=== PATIENT | female | born 1955 | race Caucasian/White ===

== ENCOUNTER 2024-01-31 13:38 | Outpatient (AMB) | payer MEDICARE, OTHER, SELFPAY ==
--- NOTE | 2024-01-31 13:40 | MHC.PC.OV ---
Vital Signs 01/31/24 13:42 Height 5 ft 2 in Weight 134 lb 4 oz BMI 24.6 BP 116/74 Blood Pressure Location Lt brachial Position Sitting Pulse 94 Pulse Source Pulse Oximeter Pulse Oximetry (%) 98 Oxygen Delivery Method Room Air Intake Visit Reasons: New Patient Allergies Sulfa (Sulfonamide Antibiotics) Allergy (Intermediate, Verified 01/31/24 13:44) Vomiting Medication List - Last Reconciled 01/31/24 by Xenia Hogan MD chlorpheniramine maleate 4 mg PO .QHS levothyroxine 112 mcg PO DAILY magnesium oxide 500 mg PO DAILY mecobalamin (vitamin B12) mcg PO [Thyroid Support PO .QD] [vertigo SUpport PO .QD] [vertisis cocculus indicus] Tobacco use date assessed: 01/31/24 Fall risk assessment: No Falls in past year Last assessed Fall Risk: 01/31/24 Dental Screening Dental Screen Date: 01/31/24 Did you have a dental visit in the last 12 months?: Yes Did you have a dental problem in the last 6 months where you did not have access to dental care?: No Was dental information given to patient?: Patient has dentist HPI New Patient HPI Details 68-year-old female with hypothyroidism being seen for the 1st time. 2 months noted forgetting things, daughter recent suicide PFSH Medical History (Updated 01/31/24 @ 14:29 by Xenia Hogan MD) Wrist fracture, left Surgical History (Updated 01/31/24 @ 14:20 by Xenia Hogan MD) History of Amplatzer atrial septal defect closure Hx of cholecystectomy H/O section Family History (Updated 01/31/24 @ 13:51 by Мария Duncan CMA) Mother Alzheimer disease Father Alzheimer disease Social History (Updated 01/31/24 @ 14:08 by Xenia Hogan MD) Household Members: Children Housing: House Alcohol intake: never Patient Tobacco Use Status: Former Tobacco user Tobacco use type: Cigarette Years Smoked: quit 2003 smoked 1 years 2 cigars a day e-Cigarette/Vaping Use: Never Used service: No Current occupational status: retired Cognitive needs: No Hearing needs: No Vision needs: Yes Questionnaire PHQ-9 Over the last 2 weeks, how often have you been bothered by any of the following problems? 1. Little interest or pleasure in doing things: not at all 2. Feeling down, depressed, or hopeless: not at all 3. Trouble falling or staying asleep, or sleeping too much: not at all 4. Feeling tired or having little energy: not at all 5. Poor appetite or overeating: not at all 6. Feeling bad about yourself - or that you are a failure or have let yourself or your family down: not at all 7. Trouble concentrating on things, such as reading the newspaper or watching television: not at all 8. Moving or speaking so slowly that other people could have noticed. Or the opposite - being so fidgety or restless that you have been moving around a lot more than usual: not at all 9. Thoughts that you would be better off or of hurting yourself in some way: not at all Total score: 0 Depression Screening Interpretation: Negative Depression Screening Done: Yes 75089 - PHQ-9 Billing: Yes Source: Developed by Drs. Jesse Portillo, Lisa Chavez, Steven Gregg and colleagues, with an educational janice from [employer]. Thrive Questionnaire Date Thrive assessed: 01/31/24 I am a: Patient What is your living situation today?: I have a steady place to live Within the past 12 months, did the food you bought not last and you didn't have the money to get more?: Never true Within the past 12 months, did you worry whether your food would run out before you got money to buy more?: Never true Do you have trouble paying for medicines?: No Do you have trouble getting transportation to medical appointments?: No Do you have trouble paying your heating and electricity bill?: No Do you have trouble taking care of your child, family member or friend?: No Do you have trouble with day-to-day activities such as bathing, preparing meals, shopping, managing finances, etc.?: No Are you currently unemployed and looking for a job?: No Are you interested in more education?: No Please select the resources that you would like help with: None Currently or been in a relationship where the following occur: No concerns reported THRIVE Score: 0 AUDIT C Alcohol Use Questionnaire (AUDIT-C) 1. How often do you have a drink containing alcohol?: Never 3. How often do you have six or more drinks on one occasion?: Never Total Score: 0 JIA-7 AMB Questionnaire JIA-7 Date JIA - 7 assessed: 01/31/24 Feeling nervous, anxious, or on edge: 1 = Several days Not being able to stop or control worryin = Several days Worrying too much about different things: 1 = Several days Trouble relaxin = Not at all Being so restless that it is hard to sit still: 0 = Not at all Becoming easily annoyed or irritable: 0 = Not at all Feeling afraid as if something awful might happen: 0 = Not at all Total JIA-7 score (0-4 normal; 5-9 mild; 10-14 moderate; 15-21 severe): 3 Source: Developed by Drs. Jesse Portillo, Lisa Chavez, Steven Gregg and colleagues, with an educational janice from [employer]. JIA-7 Assessment Billing JIA-7 Assessment Tool: JIA-7 Assessment 88526 Physical exam (Primary Care) Vital Signs: Last Vital Signs Pulse 94 01/31/24 13:42 BP 116/74 01/31/24 13:42 Pulse Ox 98 01/31/24 13:42 Oxygen Delivery Method Room Air 01/31/24 13:42 BMI result Body Mass Index 24.6 Tobacco/Smoking Status: Tobacco use Status Tobacco use date assessed 01/31/24 01/31/24 13:51 Patient Tobacco Use Status Former Tobacco user 01/31/24 13:51 Tobacco use type Cigarette 01/31/24 13:51 e-Cigarette/Vaping Use Never Used 01/31/24 13:51 PHQ-9: PHQ-9 Score PHQ-9: Total score 0 01/31/24 13:51 Depression Screening Interpretation: Negative Thrive Assessment: Date of Thrive Assessment Date Thrive assessed 01/31/24 01/31/24 13:51 Currently or been in a relationship where the following occur: No concerns reported Const General: alert; No acute distress Eyes Conjunctivae: conjunctivae normal Resp Auscultation: clear to auscultation bilaterally Cardio Rate: regular rate Rhythm: regular rhythm GI Inspection: Yes normal to inspection Extrem General: Yes normal to inspection and No edema Coding Level of Care Code New Pt Level 4 (32960) Diagnoses Acquired hypothyroidism E03.9 Hypothyroidism type: acquired Cognitive changes R41.89 Anemia, unspecified type D64.9 Anemia type: unspecified type Colon cancer screening Z12.11 Breast cancer screening by mammogram Z12.31 Screening for osteoporosis Z13.820 Cervical cancer screening Z12.4 Additional Codes JIA-7 Assessment Billing - JIA-7 Assessment Tool: JIA-7 Assessment 07472 ([id number]) PHQ-9 - 56600 - PHQ-9 Billing: Yes ([id number]) Assessment & Plan Assessment & Plan (1) Hypothyroidism: Code(s): E03.9 - Hypothyroidism, unspecified Category: Medical Qualifiers: Hypothyroidism type: acquired Qualified Code(s): E03.9 - Hypothyroidism, unspecified Plan: Continue with thyroid medication and retesting blood work. (2) Cognitive changes: Code(s): R41.89 - Other symptoms and signs involving cognitive functions and awareness Category: Medical Plan: Mini-mental status 27/30 will do blood work (3) Anemia: Code(s): D64.9 - Anemia, unspecified Category: Medical Qualifiers: Anemia type: unspecified type Qualified Code(s): D64.9 - Anemia, unspecified Plan: Workup advised (4) Colon cancer screening: Code(s): Z12.11 - Encounter for screening for malignant neoplasm of colon Category: Medical Plan: Referral done (5) Breast cancer screening by mammogram: Code(s): Z12.31 - Encounter for screening mammogram for malignant neoplasm of breast Category: Medical Plan: Reminded about mammogram (6) Screening for osteoporosis: Code(s): Z13.820 - Encounter for screening for osteoporosis Category: Medical Plan: Reminded about bone density (7) Cervical cancer screening: Code(s): Z12.4 - Encounter for screening for malignant neoplasm of cervix Category: Medical Plan: Gynecology referral done Orders: Orders Complete Blood Count Auto Diff Today E03.9 - Hypothyroidism, unspecified Free T4 (Free Thyroxine) Today E03.9 - Hypothyroidism, unspecified IRON PROFILE Today D64.9 - Anemia, unspecified Reticulocyte Count Today D64.9 - Anemia, unspecified Lipid Panel Today E03.9 - Hypothyroidism, unspecified, E78.00 - Pure hypercholesterolemia, unspecified Comprehensive Met. Panel Today E03.9 - Hypothyroidism, unspecified Thyroid Stimulating Hormone Today E03.9 - Hypothyroidism, unspecified Ferritin Today D64.9 - Anemia, unspecified Vitamin D 25-OH Total Today D64.9 - Anemia, unspecified Vitamin B12 and Folate Today D64.9 - Anemia, unspecified Erythrocyte Sedimentation Rate Today E03.9 - Hypothyroidism, unspecified C Reactive Protein Today E03.9 - Hypothyroidism, unspecified UA CC w/rflx Micro + Cult Today E03.9 - Hypothyroidism, unspecified, R30.0 - Dysuria XR DEXA axial skeleton Today M81.0 - Age-related osteoporosis without current pathological fracture, Z13.820 - Encounter for screening for osteoporosis MM tomosynthesis screening BI Today Z12.31 - Encounter for screening mammogram for malignant neoplasm of breast Referrals Gastroenterology Referral Z12.11 - Encounter for screening for malignant neoplasm of colon RADIATION CONTROL TECHNICIAN Referral Z12.4 - Encounter for screening for malignant neoplasm of cervix
[2024-01-31 13:42] VITALS: BP 116/74; PULSE 94; O2SAT 98; BMI 24.6
== END 2024-01-31 14:35 | disposition home or self-care (01) ==
PROVIDERS: PCP Internal Medicine; Visit Provider Internal Medicine
DX: E03.9 Hypothyroidism, unspecified (principal); R41.89 Other symptoms and signs involving cognitive functions and awareness; D64.9 Anemia, unspecified; Z12.11 Encounter for screening for malignant neoplasm of colon; Z12.31 Encounter for screening mammogram for malignant neoplasm of breast; Z13.820 Encounter for screening for osteoporosis; Z12.4 Encounter for screening for malignant neoplasm of cervix; Z23 Encounter for immunization

== ENCOUNTER → 2024-01-31 13:38 | Outpatient (BNVA) | payer MEDICARE, SELFPAY | PROVIDERS: PCP Internal Medicine; Visit Provider Internal Medicine | DX: Z23 Encounter for immunization (principal); E03.9 Hypothyroidism, unspecified; R41.89 Other symptoms and signs involving cognitive functions and awareness; D64.9 Anemia, unspecified | CPT/HCPCS: 90471; 90677; 96127; 99202 ==

== ENCOUNTER 2024-02-01 09:04 | Outpatient (REF) | payer MEDICARE, SELFPAY ==
[2024-02-01 09:41] LABS: MANUAL DIFF FLAG NO
[2024-02-01 10:26] LABS: Basophils Absolute Auto 0.1 X10*3/uL (0.0-0.2); Basophils Percent Auto 1.6 % (0-2); Eosinophils Absolute Auto 0.7 X10*3/uL (0.0-0.4); Hematocrit 36.1 % (37.0-47.0); Hemoglobin 11.9 g/dl (12.0-16.0); Imm Gran Abs Auto 0.01 X10*3/uL (0.00-0.03); Imm Gran Pct Auto 0.2 % (0.0-0.4); Immature Retic Fraction 4.6 % (3.0-15.9); Lymphocytes Absolute Auto 1.9 X10*3/uL (1.2-4.9); Lymphocytes Percent Auto 30.2 % (20-40); Mean Corpuscular Hemoglobin 29.7 pg (27.0-33.0); Monocytes Absolute Auto 0.4 X10*3/uL (0.1-1.2); Neutrophils Absolute Auto 3.2 x10*3/uL (2.0-8.3); Platelet Count 205 X10*3/uL (160-400); Red Blood Count 4.01 X10*6/uL (4.20-5.50); Red Cell Distribution Width 13.3 % (11.0-16.0); Retic HGB Equivalent 33.7 pg (30.0-35.0); Reticulocyte Percent 0.8 % (0.5-1.8); Reticulocytes Absolute 0.033 X10*6/uL (0.026-0.095); White Blood Count 6.3 X10*3/uL (4.8-10.8)
[2024-02-01 10:56] LABS: Appearance Urine Clear; Color Urine Yellow; Glucose Urine UA Negative (Negative); Leukocyte Esterase Urine Moderate (2+) (Negative); Nitrite Urine Negative (Negative); Specific Gravity - Urine 1.025 (1.005-1.025); UMIC TRIGGER UACC YES; Urine Blood Negative (Negative); Urine Ketones Negative (Negative); Urine Protein Negative (Neg-Trace)
[2024-02-01 11:02] LABS: Bacteria Urine None Seen (None Seen); Hyaline Casts Urine 0-2 /LPF (0-2); RBC Urine 0-2 /HPF (0-2); UACC Culture Trigger YES
[2024-02-01 11:08] LABS: Erythrocyte Sedimentation Rate 20 MM/HR (0-20)
[2024-02-01 11:32] LABS: Alanine Aminotransferase 207 U/L (0-31); Albumin Level 4.3 g/dL (3.5-5.0); Alkaline Phosphatase 64 U/L (39-117); Anion Gap 14 (12-20); Aspartate Amino Transferase 193 U/L (5-31); Bilirubin Total 0.7 mg/dL (0.0-1.0); Blood Urea Nitrogen 25 mg/dL (9-16); C Reactive Protein < 0.10 mg/dL (< or = 0.50); Calcium 9.4 mg/dL (8.4-10.2); Carbon Dioxide 25 mmol/L (22-29); Chloride 105 mmol/L (96-108); Cholesterol 263 mg/dL (<200); Estimated Glomerular Filt Rate 59; Glucose Random 95 mg/dL (60-115); HDL Cholesterol 85 mg/dL (>40); Iron 50 mcg/dL (30-160); LDL Cholesterol Calculated 166 mg/dL (<100); Percent Iron Saturation 20 % (15-50); Potassium 3.8 mmol/L (3.3-5.1); Sodium 140 mmol/L (135-145); Total Iron Binding Capacity 244 mcg/dL (228-428); Total Protein 7.3 g/dL (6.5-8.0); Triglycerides 64 mg/dL (<150); Unsaturated Iron Binding 194 ug/dL
[2024-02-01 11:44] LABS: Ferritin 163 ng/mL (10-250); Free T4 (Free Thyroxine) < 0.42 ng/dL (0.71-1.85); Thyroid Stimulating Hormone > 100.00 uIU/mL (0.32-4.0); Vitamin D 25-OH Total 29.4 ng/mL (>30)
[2024-02-01 11:52] LABS: Folate 7.3 ng/mL (> or = 4.0); Vitamin B12 472 pg/mL (200-900)
== END 2024-02-01 09:05 | disposition home or self-care (01) ==
LOC: HO.LAB 09:04
PROVIDERS: PCP Internal Medicine; Visit Provider Internal Medicine
DX: E03.9 Hypothyroidism, unspecified (principal); D64.9 Anemia, unspecified; E78.00 Pure hypercholesterolemia, unspecified; R30.0 Dysuria
CPT/HCPCS: 36415; 80053; 80061; 81001; 82306; 82607; 82728; 82746; 83540; 84439; 84443; 85025; 85045; 85652; 86140; 87086

== ENCOUNTER 2024-02-14 14:55 | Outpatient (AMB) | payer MEDICARE, SELFPAY ==
[2024-02-14 15:00] VITALS: BP 124/72; PULSE 61; O2SAT 98; BMI 23.4
--- NOTE | 2024-02-14 15:00 | MHC.PC.OV ---
Vital Signs 02/14/24 15:00 Height 5 ft 2 in Weight 128 lb 0.6 oz BMI 23.4 BP 124/72 Blood Pressure Location Lt brachial Position Sitting Pulse 61 Pulse Source Pulse Oximeter Pulse Oximetry (%) 98 Oxygen Delivery Method Room Air Intake Visit Reasons: f/u labs Allergies Sulfa (Sulfonamide Antibiotics) Allergy (Intermediate, Verified 01/31/24 13:44) Vomiting Medication List - Last Reconciled 02/14/24 by Eva Valdez PA-C chlorpheniramine maleate 4 mg PO .QHS levothyroxine 112 mcg PO DAILY magnesium oxide 500 mg PO DAILY mecobalamin (vitamin B12) mcg PO [Thyroid Support PO .QD] [vertigo SUpport PO .QD] [vertisis cocculus indicus] Tobacco use date assessed: 01/31/24 Dental Screening Dental Screen Date: 01/31/24 HPI f/u labs HPI Details 68-year-old female with hypothyroidism, anemia and cognitive changes last seen 01/31/2024 coming in for follow up. She has no acute concerns today. [facility] Medical History (Updated 02/14/24 @ 15:30 by Eva Valdez PA-C) Wrist fracture, left Surgical History (Updated 01/31/24 @ 14:20 by Xenia Hogan MD) History of Amplatzer atrial septal defect closure Hx of cholecystectomy H/O section Family History (Updated 01/31/24 @ 13:51 by Мария Duncan CMA) Mother Alzheimer disease Father Alzheimer disease Social History (Updated 01/31/24 @ 14:08 by Xenia Hogan MD) Household Members: Children Housing: House Alcohol intake: never Patient Tobacco Use Status: Former Tobacco user Tobacco use type: Cigarette Years Smoked: quit 2003 smoked 1 years 2 cigars a day e-Cigarette/Vaping Use: Never Used service: No Current occupational status: retired Cognitive needs: No Hearing needs: No Vision needs: Yes Questionnaire Thrive Questionnaire Date Thrive assessed: 01/31/24 I am a: Patient What is your living situation today?: I have a steady place to live Within the past 12 months, did the food you bought not last and you didn't have the money to get more?: Never true Within the past 12 months, did you worry whether your food would run out before you got money to buy more?: Never true Do you have trouble paying for medicines?: No Do you have trouble getting transportation to medical appointments?: No Do you have trouble paying your heating and electricity bill?: No Do you have trouble taking care of your child, family member or friend?: No Do you have trouble with day-to-day activities such as bathing, preparing meals, shopping, managing finances, etc.?: No Are you currently unemployed and looking for a job?: No Are you interested in more education?: No Please select the resources that you would like help with: None Currently or been in a relationship where the following occur: No concerns reported THRIVE Score: 0 JIA-7 AMB Questionnaire JIA-7 Date JIA - 7 assessed: 01/31/24 Source: Developed by Drs. Jesse Portillo, Lisa Chavez, Steven Gregg and colleagues, with an educational janice from [employer]. Review of Systems Const Denies body aches, Denies chills, Denies fever(s) and Denies poor appetite Card Denies chest pain, Denies syncope, Denies edema, Denies irregular heart rhythm, Denies lightheadedness and Denies dyspnea Resp Denies cough and Denies dyspnea GI Denies abdominal pain, Denies constipation, Denies diarrhea, Denies nausea and Denies vomiting Reports no additional complaints Musc Reports no additional complaints and Denies abnormal gait Skin/Breast Reports system reviewed and no additional complaints, except as documented Neuro Denies abnormal gait and Denies syncope Psych Reports no additional complaints Physical exam (Primary Care) Vital Signs: Last Vital Signs Pulse 61 02/14/24 15:00 BP 124/72 02/14/24 15:00 Pulse Ox 98 02/14/24 15:00 Oxygen Delivery Method Room Air 02/14/24 15:00 BMI result Body Mass Index 23.4 Tobacco/Smoking Status: Tobacco use Status Tobacco use date assessed 01/31/24 02/14/24 15:01 Patient Tobacco Use Status Former Tobacco user 02/14/24 15:01 Tobacco use type Cigarette 02/14/24 15:01 e-Cigarette/Vaping Use Never Used 02/14/24 15:01 Thrive Assessment: Date of Thrive Assessment Date Thrive assessed 01/31/24 02/14/24 15:01 Currently or been in a relationship where the following occur: No concerns reported Const General: cooperative, healthy appearing, comfortable and no acute distress Orientation/consciousness: patient oriented x3 HENMT Head: Yes normocephalic Ears: hearing grossly normal bilaterally General nose exam: Normal external nose present Eyes General: appearance normal, both eyes and all related structures Conjunctivae: conjunctivae normal Neck Neck: Yes full ROM and Yes no lymphadenopathy Resp Effort & Inspection: normal respiratory effort Auscultation: clear to auscultation bilaterally, no crackles, no rales, no rhonchi and no wheezes Cardio Rate: regular rate Rhythm: regular rhythm Skin General skin exam: no rashes or lesions noted Neuro General: patient oriented x3 Gait exam (Neuro): Normal gait present Extrem General: Yes normal to inspection, Yes full ROM and No edema Psych Affect: normal affect Attitude: cooperative Insight: Good insight present (Psych) Judgement: Good judgement present (Psych) Coding Level of Care Code Est Pt Level 4 (19978) Diagnoses Elevated LFTs R79.89 Acquired hypothyroidism E03.9 Hypothyroidism type: acquired Anemia, unspecified type D64.9 Anemia type: unspecified type Hypercholesterolemia E78.00 Assessment & Plan Assessment & Plan (1) Elevated LFTs: Code(s): R79.89 - Other specified abnormal findings of blood chemistry Category: Medical Plan: Patient had elevated LFTs on last blood work. We will order for hepatitis panel and ordered for abdominal ultrasound for further evaluation. (2) Hypothyroidism: Code(s): E03.9 - Hypothyroidism, unspecified Category: Medical Qualifiers: Hypothyroidism type: acquired Qualified Code(s): E03.9 - Hypothyroidism, unspecified Plan: Patient having hypothyroidism and elevated TSH and decreased free T4 on last blood work. Patient states she was not taking her levothyroxine at that time. We will redraw labs in 4 weeks and can consider increasing levothyroxine to 137. (3) Anemia: Code(s): D64.9 - Anemia, unspecified Category: Medical Qualifiers: Anemia type: unspecified type Qualified Code(s): D64.9 - Anemia, unspecified Plan: Very mild anemia on last blood work iron labs within normal limits. We will continue to monitor. (4) Hypercholesterolemia: Code(s): E78.00 - Pure hypercholesterolemia, unspecified Category: Medical Plan: Avoid foods that are high in cholesterol such as red meat, fried foods, eggs and baked goods. Triglyceride goal of less than 150 and LDL goal of less than 130. Cholesterol elevated at 166. Patient states she eats eggs and butter quite often. She would like to try diet modification before medication. Discussed the risks of elevated cholesterol and patient understands we will redraw labs in 1 month and follow up in 3 months. Plan This note was constructed using voice recognition software. While every effort has been made to ensure accuracy and braid cutter, still areas may have been included sometimes these areas may affect the content or meeting of the given symptoms. Total time spent caring for the patient today was 20 minutes. This includes time spent before the visit reviewing the chart, time spent during the visit, and time spent after the visit and documentation. Orders: Orders US abdomen complete Today R79.89 - Other specified abnormal findings of blood chemistry TSH reflex Free T4 Today Z00.00 - Encounter for general adult medical examination without abnormal findings Hepatitis A,B,C Profile Today R79.89 - Other specified abnormal findings of blood chemistry Lipid Panel Today Z00.00 - Encounter for general adult medical examination without abnormal findings Free T4 (Free Thyroxine) Today Z00.00 - Encounter for general adult medical examination without abnormal findings
== END 2024-02-14 15:30 | disposition home or self-care (01) ==
PROVIDERS: PCP Internal Medicine
DX: R79.89 Other specified abnormal findings of blood chemistry (principal); E03.9 Hypothyroidism, unspecified; D64.9 Anemia, unspecified; E78.00 Pure hypercholesterolemia, unspecified

== ENCOUNTER 2024-02-14 14:55 | Outpatient (REF) | payer MEDICARE, SELFPAY ==
[2024-02-14 16:30] LABS: Cholesterol 205 mg/dL (<200); HDL Cholesterol 68 mg/dL (>40); LDL Cholesterol Calculated 127 mg/dL (<100); Triglycerides 54 mg/dL (<150)
[2024-02-14 16:44] LABS: Free T4 (Free Thyroxine) 1.32 ng/dL (0.71-1.85); TSH reflex Free T4 20.85 uIU/mL (0.32-4.0)
[2024-02-15 08:08] LABS: HBS Num1 3.05 mIU/mL (0-7.99); HBc Num1 0.14 S/CO (0.00-0.79); Hepatitis A Antibody IgM 0.13 Index (0-0.79); Hepatitis B Core Antibody Nonreactive (Nonreactive); Hepatitis B Surface Antigen Negative (Negative); ~HepC Num1 0.07 S/CO (0.00-0.79); ~Hepatitis A Antibody IgM Nonreactive (Nonreactive); ~Hepatitis B Surface Antibody NONREACTIVE (Nonreactive); ~Hepatitis C Antibody Nonreactive (Nonreactive)
== END 2024-02-14 14:56 | disposition home or self-care (01) ==
LOC: HO.LAB 14:55
PROVIDERS: PCP Internal Medicine
DX: R79.89 Other specified abnormal findings of blood chemistry (principal); E03.9 Hypothyroidism, unspecified; D64.9 Anemia, unspecified; E78.00 Pure hypercholesterolemia, unspecified; Z79.899 Other long term (current) drug therapy
CPT/HCPCS: 36415; 80061; 84439; 84443; 86704; 86706; 86709; 86803; 87340; 99212

== ENCOUNTER 2024-02-29 08:13 | Outpatient (REF) | payer MEDICARE, SELFPAY ==
--- OUTSIDE RECORDS SUMMARY | 2024-03-01 18:45 | XMS_ITS | Continuity of Care Document ---
Author Organization [facility] Address [address] [place] [address] Phone Care Team Providers Care Tax Examining Technician Name Role Phone Jay Finney MD Unavailable [...] BY MOUTH EVERY DAY NEEDED - Active Vitamin D3 1,000 unit capsule take 2 by Oral route once 2 - Active Benadryl 25 mg capsule take 2 capsule by oral route every 4 - 6 hours as needed 50 MG - Active Synthroid 125 mcg tablet take [...] Diagnoses Date Provider Providers Copied on Encounter [facility], [address] [place] [address], [id number], tel:[phone] C [facility] No Information 8 Reg Thompson. [address] [place] [address], [address], [id number], [place]. tel:[phone] Referring Provider: Jose Angel Gordon, [address] [place] [address] [place] [address], [address] . tel:[phone] [facility], [address] [place] [address], [id number], tel:[phone] Galina [facility] Dyspnea, unspecifiedAt rial septal defect 8 Maldonado Walter. [address] [place] [address], [address], [id number], [place]. tel:[phone] Referring Provider: Jose Angel Gordon, [address] [place] [address] [address], [place], [address] . tel:[phone] NEW PATIENT VISIT [facility], [address] [place] [address], [id number], [place] tel:[phone] [facility] ASD (chief complaint)Hyp ertension (chief complaint)diz ziness (chief complaint) Atrial septal defectEssenti al (primary) hypertensionB silverio mass index (BMI) 29.0-29.9, adultDizzines sDyspnea 8 Maldonado Walter. [address] [place] [address], [address], [place], [id number], [place]. tel:[phone] Referring Provider: Jose Angel Gordon, [address] [place] [address] [address], [place], [address] . tel:[phone] OFFICE VISIT-ESTABL [facility], [address] [place] [address], [id number], [place] tel:[phone] [facility] ASD (chief complaint)Hyp ertension (chief complaint) Ostium secundum type atrial septal defectHyperte nsion, BenignOverwei ght 5 Maldonado Walter. [address] [place] [address], [address], [place], [id number], [place]. tel:[phone] [facility], [address] [place] [address], [id number], [place] tel:[phone] [facility] Atrial Septal DefectHyperte nsion, Benign 5 Maldonado Walter. [address] [place] [address], [address], [place], [id number], [place]. tel:[phone] Referring Provider: Jose Angel Gordon, [address] [place] [address] [address] [facility], [place], [address] . tel:[phone] [facility], [address] [place] [address], [id number], [place] tel:[phone] [facility] No Information 4 Maldonado Walter. [address] [place] [address], [address], [id number], [place]. tel:[phone] OFFICE VISIT-ESTABL [facility], [address] [place] [address], [id number], [place] tel:[phone] [facility] Hypertension (chief complaint)ASD (chief complaint) Ostium secundum type atrial septal defectHyperte nsion, BenignObesity unspecified, BMI 30-39Overweig ht 4 Maldonado Walter. [address] [place] [address], [address], [place], [id number], [place]. tel:[phone] [facility], [address] [place] [address], [id number], [place] tel:[phone] C [facility] Atrial Septal DefectDizzine ss 4 Maldonado Walter. [address] [place] [address], [facility] [address], [id number], [place]. tel:[phone] Referring Provider: Jose Angel Gordon, [address] [place] [address] [address], [place], [address] . tel:[phone] OFFICE/OUTPA TIENT VISIT EST [facility], [address] [place] [address], [id number], [place] tel:[phone] [facility] Ostium secundum type atrial septal defectHyperte nsion, BenignObesity unspecified, BMI 30-39 4 Maldonado Walter. [address] [place] [address], [address], [id number], [place]. tel:[phone] [facility], [address] [place] [address], [id number], [place] tel:[phone] C [facility] No Information 4 Maldonado Walter. [address] [place] [address], [facility] [address], [place], [id number], [place]. tel:[phone] Referring Provider: Jose Angel Gordon, [address] [place] [address] [place] [address], [address] . tel:[phone] [facility], [address] [place] [address], [id number], [place] tel:[phone] No Location Atrial Septal Defect No Information OBSERVATION DISCHARGE [facility], [address] [place] [address], [id number], [place] tel:[phone] [facility] [facility] Ostium secundum type atrial septal defect 4 Maldonado Walter. [address] [place] [address], [address], [place], [id number], [place]. tel:[phone] Referring Provider: Alyssa Moyer, [address] [place] [address] [address], [place], [address] . tel:[phone] [facility], [address] [place] [address] [address], [id number], [place] tel:[phone] [facility] No Information 4 Maldonado Walter. [address] [place] [address], [address], [place], [id number], [place]. tel:[phone] Referring Provider: Jose Angel Gordon, [address] [place] [address] [address], [place], [address] . tel:[phone] [facility], [address] [place] [address], [id number], [place] tel:[phone] [facility] Ostium secundum type atrial septal defect 4 Maldonado Walter. [address] [place] [address], [address], [id number], [place]. tel:[phone] Referring Provider: Jose Angel Gordon, [address] [place] [address] [address], [place], [address] . tel:[phone] OFFICE/OUTPA TIENT VISIT EST [facility], [address] [place] [address], [place], [id number], [place] tel:[phone] [facility] Ostium secundum type atrial septal defect 3 Maral Shah. [address] [place] [address], [address], [id number], [place]. tel:[phone] Referring Provider: Alyssa Moyer, [address] [place] [address] [address], [place], [address] . tel:[phone] [facility], [address] [place] [address] [address], [id number], [place] tel:[phone] [facility] Ostium secundum type atrial septal defect 3 Maldonado Walter. [address] [place] [address], [address], [id number], [place]. tel:[phone] Referring Provider: Alyssa Moyer, [address] [place] [address] [address], [place], [address] . tel:[phone] [facility], [address] [place] [address] [address], [id number], [place] tel:[phone] [facility] Mitral valve disordersTric uspid valve disorders, specified as nonrheumaticO stium secundum type atrial septal defect 3 Maral Shah. [address] [place] [address], [address], [id number], [place]. tel:[phone] Referring Provider: Alyssa Moyer, [address] [place] [address] [address], [place], [address] . tel:[phone] OFFICE/OUTPA TIENT VISIT NEW [facility], [address] [place] [address] [address], [id number], [place] tel:[phone] [facility] Ostium secundum type atrial septal defectFatigue / Malaise 2-201 3 Maral Shah. [address] [place] [address], [address], [place], [id number], [place]. tel:[phone] Referring Provider: Alyssa Moyer, [address] [place] [address] [address], [place], [address] . tel:[phone] [facility], [address] [place] [address] [address], [id number], [place] tel:[phone] C [facility] Murmur 8-201 3 Maral Shah. [address] [place] [address], [address], [id number], [place]. tel:[phone] Referring Provider: Jay Brasher, [address] [place] [address] [address], [place], [address]. tel:[phone] Family History Family Member Type Diagnosis Age At Onset Mother Problem (finding) Sister Problem (finding) High Blood Pressure Sister Problem (finding) hypertension Father Problem (finding) Father Problem (finding) High Blood Pressure Father Problem (finding) hypertension Mother Problem (finding) alzheimer's disease (Ca use Of ) Father Problem (finding) Prostate Cancer (Cause Of ) Payers Payer name Insurance type Covered libertarian ID Authoriza tion(s) BCBS PPO Other State [place] F[place] BL [id number] Social History Type Description Quantity Date Captured [...] Future Order: Lab Order CBC With Differential/Platelet ([id number]), Sent on: Sent Future Order: Lab Order Basic Me tabolic Panel (8) ([id number]), Sent on: Sent History Of Present Illness Encounter Date Complaint History Of Prese nt Illness Hypertension ASD dizziness Hypertension ASD ASD Hypertension Functional Status Date Functional Assessmen [...]
== END 2024-02-29 08:14 | disposition home or self-care (01) ==
LOC: HO.US 08:13
PROVIDERS: PCP Internal Medicine
DX: R79.89 Other specified abnormal findings of blood chemistry (principal)
CPT/HCPCS: 76700

== ENCOUNTER 2024-03-16 08:04 | Outpatient (REF) | payer MEDICARE, SELFPAY ==
--- NOTE | ~2024-03-16 | MM_ITS ---
EXAMINATION: MM SCREENING DIGITAL BREAST TOMOSYNTHESIS, BILATERAL CLINICAL INFORMATION: Screening. Asymptomatic. COMPARISON: Mammography: Baseline. TECHNIQUE: Digital breast mammography with tomosynthesis is performed in both the craniocaudal and mediolateral oblique views along with computer-aided detection (CAD). FINDINGS: There are scattered areas of fibroglandular density (ACR BI-RADS breast composition Category b). Left: Asymmetry superior breast posterior depth on MLO view could represent a low axillary intramammary lymph node. No suspicious calcifications or other abnormal findings. Right: There are no significant masses, abnormal calcifications, or other abnormalities. MM/MM tomosynthesis screening BI IMPRESSION: Additional imaging is recommended ASSESSMENT: BI-RADS BI-RADS 0 - Incomplete: Needs additional Imaging. RECOMMENDATION: Ultrasound of the left breast recommended at this time. Radiology department staff will contact the patient for additional imaging. Additional Imaging required This examination should not preclude the clinical evaluation of a suspicious palpable abnormality. This patient's information was entered into a reminder system with a target due date for their next mammogram. Electronically signed by: Nishi Guillory DO 03/27/2024 02:09 PM JEFF
--- NOTE | ~2024-03-16 | MM_ITS ---
EXAMINATION: BONE DENSITOMETRY CLINICAL INDICATION: Age-related osteoporosis without current pathological fracture. COMPARISON: This is the patient's baseline examination. TECHNIQUE: Using a Epic Playground DXA System (software version: 13.1) manufactured by [employer], dual-energy x-ray absorptiometry was performed of the lumbar spine and left hip. The images are of good technical quality. Summary results are attached. FINDINGS: LEFT FEMUR, NECK: BMD 0.746 g/cm2, Z-score -0.3, T-score -2.1, osteopenia. LEFT FEMUR, TOTAL: BMD 0.806 g/cm2, Z-score 0.0, T-score -1.6, osteopenia. AP SPINE L1-L4: BMD 1.094 g/cm2, Z-score 1.3, T-score -0.7, normal. IDENTIFIED RISK FACTORS: Menopause, secondary osteoporosis (hyperthyroidism). HISTORY OF FRACTURE: None listed. MEDICATIONS: Vitamin D. MM/XR DEXA axial skeleton IMPRESSION: 1. DIAGNOSIS: Osteopenia based on the lowest T-score value of -2.1 in the femoral neck applying World Health Organization criteria. 2. 10-YEAR FRACTURE RISK PREDICTION, FRAX: Major osteoporotic fracture (clinical spine, forearm, hip or shoulder) 11.2%. Hip fracture 2.2%. 3. Treatment Recommendations: NOF guidelines recommend consideration for treatment in postmenopausal women and men age 50 and older presenting with the following: -A hip or vertebral (clinical or morphometric) fracture. -T-score less than or equal to -2.5 at the femoral neck or spine after appropriate evaluation to exclude secondary causes. -Low bone mass at the hip or spine and a 10-year fracture probability by FRAX of greater than or equal to 3% for hip fracture or greater than or equal to 20% for major osteoporotic fracture based on the [place] adapted WHO algorithm. 4. Other Recommendations: All treatment decisions require clinical judgment and consideration of individual patient factors, including patient preferences, comorbidities, previous drug use, risk factors not captured in the FRAX model (e.g. frailty, falls, vitamin D deficiency, increased bone turnover, interval significant decline in bone density) and possible under or overestimation of fracture risk by FRAX. Additional medical evaluation for secondary cause of low bone mineral density may be appropriate. FUTURE SCAN RECOMMENDATION: People with diagnosed cases of osteoporosis or at high risk for fracture should have regular bone mineral density tests. For patients eligible for Medicare, routine testing is allowed once every 2 years. The testing frequency can be increased to one year for patients who have rapidly progressing disease, those who are receiving or discontinuing medical therapy to restore bone mass, or have additional risk factors. Electronically signed by: Shane Ascencio MD 03/16/2024 01:40 PM JEFF
--- OUTSIDE RECORDS SUMMARY | 2024-03-16 08:07 | XMS_ITS | Data Portability ---
Author Organization [facility], , [facility] Address [address] [place] [address] Care Team Providers Care Business Intelligence Manager Name Role Phone KAITLYNN SANCHEZ Primary Care Provider JACQUIE RAMIREZ Primary Care Provider Assessment No assessment recorded. Plan of Treatment Reminders Order Date Submit Date Provider Last Modified By Organization Details Last Modified Time Details Appointments None recorded. Lab T4, free, serum 2020 [facility], [address] [place] [address], [address], 12:47:12 lipid panel, serum 2021 [facility], [address] [place] [address], [address], 12:29:16 CMP, serum or plasma 2021 022 [facility], [address] [place] [address], [address], 2 12:29:15 HbA1c (hemoglobin A1c), blood 2021 [facility], [address] [place] [address], [address], 2 11:34:40 TSH, serum or plasma 2021 [facility], [address] [place] [address], [address], 14:35:01 pap, LB + HPV - if HPV positive reflex to HPV subtyping 2021 [facility] (Pathology), [address] [facility], [place], [address], 10:28:16 Referral None recorded. Procedures None recorded. Surgeries None recorded. Imaging MAMMO, screening, tomosynthes is, bilateral 2021 022 nviens Not available 14:23:25 bone density 2021 [facility] (Imaging), [address] , [place], [address], 20:00:32 Medication Orders alendronate 70 mg tablet 2020 021 [facility]armacy #[id number], [address] [place], [address], 13:04:28 levothyroxi ne 112 mcg tablet 2020 021 [facility] #[id number], [address] [place], [address], 16:56:08 Patient Targets Encounter Date Encounter Id Patient Goals Patient Target Last Modified By Organization Details Last Modified Time goal includesworking in gardernsticking to weekend ruleadn eating more salads. egraef Not available 09/13/2020 16:00:21 Patient Instructions Encounter Date Encounter Id Patient Instructions Last Modified By Organization Details Last Modified Time 07/25/2021 [id number] advance directives: care instructions egraef Not available 07/25/2021 17:02:58 preventing falls : care instructions egraef Not available 07/25/2021 17:02:58 hearing loss: care instructions egraef Not available 07/25/2021 17:02:58 well visit, over 65: care instructions egraef Not available 07/25/2021 17:02:58 Reason for Referral None Reported. Results Created Date Observation Date Name Description Value Unit Range Abnormal Flag Note LastModifiedBy Organization Detail LastModifiedTime 08/31/19 21 09/02/2020 HbA1c (hemo globi n A1c), blood hemoglobin A1C 6.1 % 4.8-6. 0 high Goal: <7% in Patie nts with Diabe rody An A1c betwe en 5.7-6 .4% is ident ified as pre-d iabet es and sugge sts risk for progr essio n to diabe rody Two a1c value s of 6.5% or highe r is consi stent with a diagn osis of diabe rody but may need furth er confi rmati on Not Available [address], [address], 09/02/2020 11:36:46 08/31/1909/02/2020 HbA1c (hemo globi n A1c), blood estimated average glucose 128.4 mg/dL Not Available [address], [address], 09/02/2020 11:36:46 08/31/1909/02/2020 TSH, serum or plasm a TSH 0.26 uIU/m L 0.50-6 .00 low The Ameri can Colle ge of Endoc rinol ogy and Ameri can Thyro id Assoc iatio n recom mend goal TSH value s betwe en 0.4-4 .0 mIU/m L. Not Available [address], [address], 09/02/2020 13:43:52 08/31/1909/02/2020 BMP, serum or plasm a glucose 85 mg/dL 70-100 Not Available [address], [address], 09/02/2020 15:23:46 08/31/1909/02/2020 BMP, serum or plasm a BUN 22 mg/dL 7-18 high Not Available [address], [address], 09/02/2020 15:23:46 08/31/1909/02/2020 BMP, serum or plasm a creatinine 0.8 mg/dL 0.8-1. 3 Not Available [address], [address], 09/02/2020 15:23:46 08/31/19 21 09/02/2020 BMP, serum or plasm a B/C 27.5 ratio Not Available [address], [address], 09/02/2020 15:23:46 08/31/19 21 09/02/2020 BMP, serum or plasm a GFR -non 80.9 mL/mi n Recom mannie d GFR by the Natio nal Kidne y Found ation >60 mL/mi n/1.7 3m2 - Enriqueta l <60 mL/mi n/1.7 3m2 - Chron ic Kidne y Disea se <15 mL/mi n/1.7 3m2 - Kidne y Failu re Not Available [address], [address], 09/02/2020 15:23:46 08/31/19 21 09/02/2020 BMP, serum or plasm a GFR - if 93.0 mL/mi n For Afric an Ameri can patie nts: Resul ts Multi plied by 1.21 Not Available [address], [address], 09/02/2020 15:23:46 08/31/19 21 09/02/2020 BMP, serum or plasm a sodium 142 mmol/ L 136-14 5 Not Available [address], [address], 09/02/2020 15:23:46 08/31/19 21 09/02/2020 BMP, serum or plasm a potassium 4.2 mmol/ L 3.5-5. 1 Not Available [address], [address], 09/02/2020 15:23:46 08/31/19 21 09/02/2020 BMP, serum or plasm a chloride 104 mmol/ L 96-107 Not Available [address], [address], 09/02/2020 15:23:46 08/31/19 21 09/02/2020 BMP, serum or plasm a anion gap 13.0 5.0-15 .0 Not Available [address], [address], 09/02/2020 15:23:46 08/31/19 21 09/02/2020 BMP, serum or plasm a CO2 25 mmol/ L 21-32 Not Available [address], [address], 09/02/2020 15:23:46 08/31/19 21 09/02/2020 BMP, serum or plasm a calcium 8.7 mg/dL 8.5-10 .3 Not Available [address], [address], 09/02/2020 15:23:46 11/14/19 21 11/14/2020 TSH TSH 0.26 uIU/m L 0.50-6 .00 low The Ameri can Colle ge of Endoc rinol ogy and Ameri can Thyro id Assoc iatio n recom mend goal TSH value s betwe en 0.4-4 .0 mIU/m L. Not Available [address], [address], 11/14/2020 12:09:51 04/16/19 22 04/16/2021 FREE T4 free T4 1.49 NG/dL 0.75-1 .54 Not Available [address], [address], 04/16/2021 12:47:12 05/02/19 22 05/05/2021 HGB A1C hemoglobin A1C 5.9 % 4.8-6. 0 Goal: <7% in Patie nts with Diabe rody An A1c betwe en 5.7-6 .4% is ident ified as pre-d iabet es and sugge sts risk for progr essio n to diabe rody Two a1c value s of 6.5% or highe r is consi stent with a diagn osis of diabe rody but may need furth er confi rmati on Not Available [address], [address], 05/05/2021 11:34:40 05/02/19 22 05/05/2021 HGB A1C estimated average glucose 122.6 mg/dL Not Available [address], [address], 05/05/2021 11:34:40 05/02/19 22 05/05/2021 COMP. METAB OLIC PANEL glucose 97 mg/dL 70-100 Not Available [address], [address], 05/05/2021 12:29:15 05/02/19 22 05/05/2021 COMP. METAB OLIC PANEL BUN 13 mg/dL 7-18 Not Available [address], [address], 05/05/2021 12:29:15 05/02/19 22 05/05/2021 COMP. METAB OLIC PANEL creatinine 0.9 mg/dL 0.8-1. 3 Not Available [address], [address], 05/05/2021 12:29:15 05/02/19 22 05/05/2021 COMP. METAB OLIC PANEL B/C 14.4 ratio Not Available [address], [address], 05/05/2021 12:29:15 05/02/19 22 05/05/2021 COMP. METAB OLIC PANEL GFR >=60ML /MIN mL/mi n normal >=60m L/min - Enriqueta l or midly reduc ed <60mL /min- Decre ased kidne y funct ion <15mL /min - Kidne y failu re [facility] calcu lates estim ated Glome rular Filtr ation Rate (eGFR ) using the Chron ic Kidne y Disea se Epide miolo gy Colla borat ion (CKD- EPI) Equat ion (Flakito r et. al 2020) as recom mannie d by the Natio nal Kidne y Found ation . eGFR is based on age, serum creat inine , and sex. CKD-E PI does not calcu late eGFR by race, does not apply to child thuan (age <18 years ), and shoul d not be used in pregn sebastián. Not Available [address], [address], 05/05/2021 12:29:15 05/02/19 22 05/05/2021 COMP. METAB OLIC PANEL sodium 139 mmol/ L 136-14 5 Not Available [address], [address], 05/05/2021 12:29:15 05/02/19 22 05/05/2021 COMP. METAB OLIC PANEL potassium 4.6 mmol/ L 3.5-5. 1 Not Available [address], [address], 05/05/2021 12:29:15 05/02/19 22 05/05/2021 COMP. METAB OLIC PANEL chloride 103 mmol/ L 96-107 Not Available [address], [address], 05/05/2021 12:29:15 05/02/19 22 05/05/2021 COMP. METAB OLIC PANEL anion gap 12.9 5.0-15 .0 Not Available [address], [address], 05/05/2021 12:29:15 05/02/19 22 05/05/2021 COMP. METAB OLIC PANEL CO2 23 mmol/ L 21-32 Not Available [address], [address], 05/05/2021 12:29:15 05/02/19 22 05/05/2021 COMP. METAB OLIC PANEL calcium 9.1 mg/dL 8.5-10 .3 Not Available [address], [address], 05/05/2021 12:29:15 05/02/19 22 05/05/2021 COMP. METAB OLIC PANEL total protein 7.5 g/dL 6.4-8. 2 Not Available [address], [address], 05/05/2021 12:29:15 05/02/19 22 05/05/2021 COMP. METAB OLIC PANEL albumin 4.2 g/dL 3.4-5. 0 Not Available [address], [address], 05/05/2021 12:29:15 05/02/19 22 05/05/2021 COMP. METAB OLIC PANEL globulin 3.3 g/dL Not Available [address], [address], 05/05/2021 12:29:15 05/02/19 22 05/05/2021 COMP. METAB OLIC PANEL A/G 1.3 ratio 0.8-2. 0 Not Available [address], [address], 05/05/2021 12:29:15 05/02/19 22 05/05/2021 COMP. METAB OLIC PANEL total bilirubin 1.00 mg/dL 0.00-1 .00 Not Available [address], [address], 05/05/2021 12:29:15 05/02/19 22 05/05/2021 COMP. METAB OLIC PANEL AST 26 U/L 0-37 Not Available [address], [address], 05/05/2021 12:29:15 05/02/19 22 05/05/2021 COMP. METAB OLIC PANEL ALT 31 U/L 6-63 Not Available [address], [address], 05/05/2021 12:29:15 05/02/19 22 05/05/2021 COMP. METAB OLIC PANEL alk. phos. 61 U/L 50-136 Not Available [address], [address], 05/05/2021 12:29:15 05/02/19 22 05/05/2021 LIPID PANEL cholesterol 205 mg/dL <200 mg/dl Mi able 200-2 39 mg/dl Borde rline High >240 mg/dl High Not Available [address], [address], 05/05/2021 12:29:16 05/02/19 22 05/05/2021 LIPID PANEL triglyceride s 61 mg/dL <150 mg/dL Enriqueta l 150-1 99 mg/dL Borde rline High 200-4 99 mg/dL High >500 mg/dL Very High Not Available [address], [address], 05/05/2021 12:29:16 05/02/19 22 05/05/2021 LIPID PANEL direct HDL 68 mg/dL <40 mg/dl - Major Risk for CHD >60 mg/dl - Negat gomez Risk for CHD Not Available [address], [address], 05/05/2021 12:29:16 05/02/19 22 05/05/2021 LDL - CALCU LATED LDL - calculated 124.8 RISK CATEG ORY LDL GOAL _ CHD or CHD Risk Equiv alent s <100 mg/dl (10-y ear risk >20%) 2+ Risk Facto rs <130 mg/dl (10-y ear risk <= 20%) 0-1 Risk Facto r??? <160 mg/dl ??? Almos t all peopl e with 0-1 risk facto r have a 10 year risk <10%, thus 10 year risk asses ment in peopl e with 0-1 risk facto r is not necramana chase. Not Available [address], [address], 05/05/2021 12:29:17 05/02/19 22 05/05/2021 TSH TSH 1.00 uIU/m L 0.50-6 .00 The Ameri can Colle ge of Endoc rinol ogy and Ameri can Thyro id Assoc iatio n recom mend goal TSH value s betwe en 0.4-4 .0 mIU/m L. Not Available [address], [address], 05/05/2021 14:35:01 07/26/19 22 08/01/2021 PAP SMEAR path report [facility] [address] [place] [address] Lab Direc tor: Meka jennings MD METAL COATER Cytol ogy Repor t Acces vivi #: [id number] FINAL DIAGN OSIS A. PAP SMEAR (SURE PATH) CE: SPECI MEN ADEQU ACY: Satis facto ry for evalu ation ; trans forma tion zone prese nt. INTER PRETA TION: NEGAT GOMEZ FOR INTRA EPITH ELIAL LESIO N OR MALIG CACHORRO . Elect timoteo martinez Misa d Out By: Lisa Cortez , [place]( CP) The Pap test is a scree josé manuel test prima rily for squam ous cance rs and precu rsors and has assoc iated false -nega tive and false -posi tive resul ts. New techn ologi es such as liqui d-bas ed prepa ratio ns may decre ase but will not elimi baltazar all false -nega tive resul ts. Regul ar sampl ing and follo w-up of unexp marcus d clini malika signs and sympt oms are recom mannie d to minim ize false negat gomez resul ts. PROCE DURES /ADDE NDA HPV Testi ng (Requ ested ) Order ed Date: 2021 A. PAP SMEAR (SURE PATH) CE: Human Papil dilia Virus Test Negat gomez for high- risk human papil lomav irus types 16, 18, 45 and the Othe r high risk probe set (Incl udes 31, 33, 35, 39, 51, 52, 56, 58, 59, 66, 68) by Jacklyn dillon Onctona wellsy HR-HP V holli sis. Clini malika tash dent n is advis ed. This HPV test was perfo rmed at [facility], [address] [facility]. This test has been FDA appro too for SureP ath cervi malika cytol ogy speci mens. The accur acy and preci vivi of this test for all other speci men sourc es has been verif ied in the Cytop athol ogy Labor atory of the [facility] and has not been clear ed or appro too by the U.S. Food and Drug Admin istra tion. Clini malika corre latio n is advis ed. Terra ctron icall y Misa d Out By: Alvin Villela on 2021 17:30 CLINI MALIKA HISTO RY Date of Last Menst rual Perio d: Not Provi ded Menst rual Histo ry: Unkno wn Other Clini malika Condi tions : Kevon georges Pap SPECI MEN SOURC E A: PAP SMEAR (SURE PATH) CE Patie nt Name: MARGARITA RAMOS : [id number] (Age: 66) Sex: M 1 Insti tutio n: [facility] Locat ion: [facility] Date of Colle ction : 022 Date of Acces vivi: 2021 Repor yandy: 2021 10:26 Resul ts to: Ashley Banerjee RN OBSERVATION Not Available [facility] (Outpatient) [address] [place] [address], [address], 08/01/2021 10:28:16 08/04/19 22 05/05/2021 MAMMO , scree josé manuel, tomos ynthe sis, bilat eral No observ ation record ed. nviens Not Available 2021 14:23:19 02/05/20 22 01/22/2022 bone densi ty Dual-E nergy X-ray Absorp tiomet ry (DXA) scan perfor med on 2. Impres vivi: Based on BMD, diagno sis is consis tent with low bone mass. Treatm ent Recomm endati ons: ?Opti omega vitami n D, calciu m, and weight -beari ng and muscle -stren gtheni ng exerci se. Follow -up DXA: Consid er repeat ing this study in one to two years or as clinic juan kebede. Indica tion(s ): Caucas carmen, postme nopaus al Clinic al Histor y: osteop enia (on alendr ricardo) , fragil ity fractu re Techni malika Qualit y: The techni malika qualit y of the study was good. The L3-L4 region was exclud ed due to artifa ct. Result s: Lumbar Spine The BMD measur ed in the L1-L2 region is 1.109 g/cm2. T-scor e = -0.5. Femora l Neck The BMD measur ed at the right femora l neck is 0.808 g/cm2. T-scor e = -1.7. Total Hip The BMD measur ed at the total right proxim al femur is 0.897 g/cm2. T-scor e = -0.9. Interv al Change : This examin ation is compar ed to the techni alba rob r prior study from . In the interi m, there has been a signif icant decrea se of 0.035 g/cm2, or 3.1 %, at the lumbar spine. At this facili ty, the least signif icant change in BMD with 95% confid ence is 0.028 g/cm2 at the L1-L4 spine and 0.038 g/cm2 at the total hip. Fractu re Risk: FRAX not calcul ated due to ongoin g alendr ricardo therap y. This scan was perfor med using the GE Lunar Prodig y Primo 10 densit ometer at [facility] , [place] [id number] [place]. Read by: Meka Coronado on, MS, [facility]- , CCD Yvon morales: Gilberto villanueva[address] (Imaging) [address] , [place], [id number], 01/15/2023 10:10:18 03/03/20 24 03/03/2024 XR, chest , 2 view No observ ation record ed. [email or web address] 1 [facility] [address] [facility], [place], [address], 03/03/2024 19:05:36 Result Notes None recorded. Problems Name Problem SNOMED Code Status Onset Date Resolution Date Notes Provider Name and Address Organization Details Recorded Time Gastroesop hageal reflux disease 523519336 Active Ashley Banerjee GRAPHITE M[employer] OPERATOR[address] [place], [address], [facility] 09:42:53 Hiatal hernia 53680020 Active EGD, 01/2014, Ashley Banerjee [address] [place], [address], [facility] 09:23:02 Atrial septal defect 94794954 Active amplatzer septal occluder, 11/2013 Ashley Banerjee [address] [place], [address], [facility] 09:42:53 Hypothyroi dism 81770809 Active Ashley Banerjee [address] [place], [address], [facility] 6 09:42:53 Major depressive disorder 808361308 Active 2019 Ashley Banerjee [address] [place], [address], [facility] 0 12:19:07 Osteoporos is 41897009 Active 2019 Ashley Banerjee, [employer] OPERATOR-BC [address] [place], [address], [facility] 23:30:25 Problem Notes None recorded. Procedures Surgical History Date Name Laterality Status Provider Name and Address Organization Details Recorded Time 07/26/19 Medicare Wellness Visit completed Jayleen Ring MA [facility] 07/25/2021 16:35:31 07/26/19 22 Alcohol use screening completed Jayleen Ring MA [facility] 07/25/2021 16:35:31 07/26/19 22 Cardiovascular disease risk reduction counseling completed Jayleen Ring MA [facility] 07/25/2021 16:35:31 05/30/19 21 [address]: Therapeutic Exercise completed Jess Coates, PT [address] [place], [address], [facility] 05/29/2020 13:02:14 05/30/19 21 Treatment and Advice completed Jess Coates, PT [address] [place], [address], [facility] 05/29/2020 12:36:35 05/15/19 21 [address]: Therapeutic Exercise completed Jess Coates, PT [address] [place], [address], [facility] 05/15/2020 16:04:14 05/15/19 21 Treatment and Advice completed Jess Coates, PT [address] [place], [address], [facility] 05/15/2020 16:23:28 05/03/19 21 [address]: Therapeutic Exercise completed Jess Coates, PT [address] [place], [address], [facility] 05/03/2020 15:01:44 05/03/19 21 Treatment and Advice completed Jess Coates, PT [address] [place], [address], [facility] 05/03/2020 15:01:15 04/16/19 21 Physical Activity Counselling completed Jess Coates, PT [address] [place], [address], [facility] 04/16/2020 18:33:29 04/16/19 21 [address]: PT Eval Low Complexity completed Jess Coates, PT [address] [place], [address], [facility] 04/16/2020 18:33:23 04/16/19 21 Treatment and Advice completed Jess Coates, PT [address] [place], [address], [facility] 04/16/2020 18:31:38 10/06/19 20 prevention-cardiov ascular risk reduction counseling completed Ani Farooq [facility] 10/06/2019 11:24:39 10/06/19 20 prevention-annual alcohol misuse screening completed Ani Farooq [facility] 10/06/2019 11:24:39 02/29/20 19 POC Urinalysis Testing completed Lisa Orozco [facility] 02/28/2019 12:08:37 11/21/19 14 Other (specify) completed Ashley Banerjee, [employer] OPERATOR-BC [address] [place] [address], [address], [facility] 08/28/2015 09:20:04 Imaging Results Imaging Date Name Status LastModified by Organiz ation Details LastModified Time 05/05/2021 MAMMO, screening, tomosynthesis, bilateral completed nviens Information not available 08/12/2021 14:23:19 01/22/2022 bone density completed [address] (Imaging) [address], [place], [address], 01/15/2023 10:10:18 03/03/2024 XR, chest, 2 view completed [address], [address], 03/03/2024 19:05:36 Procedure Notes None recorded. Medical Equipment None Reported. Allergies Allergen ID Allergen Name Allergen Category Reaction Reaction Severity Criticality Documentation Date Start Date Code Code System Note Provider Name and Address Organization Details Recorded Time 19011126 Substance with sulfonami de structure and antibacte rial mechanism of action (substanc e) medicatio n vomiting severe Not available 08/28/2015 29792 8003 [facility]ED [facility] 08:[facility]24 903315 codeine medicatio n other severe Not available 08/28/2015 2670 RxNorm Sees visio ns that are not there [facility] 6 08:53:24 921642 Phenergan medicatio n vomiting severe Not available 08/28/2015 26293 8 RxNorm [facility] 6 08:53:24 Medications Name Sig Start Date Stop Date Status Note LastModified by Organization Details LastModified Time levothyroxi ne 137 mcg tablet TAKE 1 TABLET BY MOUTH EVERY DAY 09/13 completed not takin g- is on 125mc g srp Not Available Not Available Not Available citalopram 10 mg tablet TAKE 1 TABLET BY MOUTH EVERY DAY active Not Available Not Available No t Available ranitidine 300 mg tablet Take 1 tablet every day by oral route as directed. 02/28 completed Not Available Not Available Not Available alendronate 70 mg tablet TAKE 1 TABLET BY MOUTH ONCE WEEKLY active Not Available Not Available No t Available meclizine 25 mg tablet Take 1 tablet every day by oral route as needed. active Not Available Not Available No t Available levothyroxi ne 125 mcg tablet TAKE 1 TABLET BY MOUTH EVERY DAY DIRECTED( except sundays ) 07/27 completed Not Available Not Available Not Available levothyroxi ne 150 mcg tablet TAKE 1 TABLET BY MOUTH EVERY DAY 02/28 completed Not Available Not Available Not Available levothyroxi ne 112 mcg tablet TAKE 1 TABLET BY MOUTH EVERY DAY ON AN EMPTY STOMACH 6 DAYS PER WEEK active Not Available Not Available No t Available nitrofurant oin monohydrate /macrocryst als 100 mg capsule TAKE 1 CAPSULE BY MOUTH EVERY 12 HOURS FOR 7 DAYS 10/05 completed Not Available Not Available Not Available Nexium 24HR 22.3 mg capsule,del ayed release Take 1 capsule every day by oral route as directed for 30 days. 02/28 completed Not Available Not Available Not Available Vitals Date Recorded Body height Body mass index (BMI) Body weight Oxygen saturation Oxygen saturation in Arterial blood by Pulse oximetry Heart rate Systolic blood pressure Diastolic blood pressure Provider Name and Address Organization Details Last Updated DateTime 1 157.48 cm 28.2 kg/m2 74784.6 2 g 96 % 96 % 96 /min 128 mm[Hg] 64 mm[Hg] Ani Farooq MA [facility] 1 15:51:55 Date Recorded Body height Body mass index (BMI) Body weight Heart rate Systolic blood pressure Diastolic blood pressure Provider Name and Address Organization Details Last Updated DateTime 1 157.48 cm 28.1 kg/m2 22506.4 3 g 60 /min 126 mm[Hg] 62 mm[Hg] Ani Farooq MA [facility] 1 16:02:39 Date Recorded Body height Body mass index (BMI) Body weight Heart rate Systolic blood pressure Diastolic blood pressure Provider Name and Address Organization Details Last Updated DateTime 2 157.48 cm 27.8 kg/m2 20900.0 4 g 80 /min 134 mm[Hg] 68 mm[Hg] Ani Farooq MA [facility] 2 15:07:16 Date Recorded Body height Body mass index (BMI) Body weight Oxygen saturation Oxygen saturation in Arterial blood by Pulse oximetry Heart rate Systolic blood pressure Diastolic blood pressure Provider Name and Address Organization Details Last Updated DateTime 2 157.48 cm 27.8 kg/m2 33285.0 4 g 94 % 94 % 94 /min 138 mm[Hg] 60 mm[Hg] Jayleen Ring MA [facility] 2 16:33:54 Date Recorded Body height Body mass index (BMI) Body weight Heart rate Systolic blood pressure Diastolic blood pressure Provider Name and Address Organization Details Last Updated DateTime 2 157.48 cm 27.3 kg/m2 04439.0 6 g 68 /min 118 mm[Hg] 68 mm[Hg] Ani Farooq MA [facility] 2 15:43:01 Social History Question Answer Notes LastModified by Organizat ion Details LastModified Time Tobacco Smoking Status Never Smoker [facility] 08/29/2018 15:01:19 What Is Your Level Of Alcohol Consumption? Occasional Glass Of Wine On Weekends At Dinner Information not available 08/28/2015 Do You Wear A Helmet When Biking? No N/a [email or web address] Information not available 07/25/2021 What Is Your Level Of Caffeine Consumption? Heavy At Least 3 Cups A Day Information not available 08/28/2015 Are You Currently Employed? Yes [email or web address] Information not available 07/25/2021 What Type Of Diet Are You Following? REGULAR Information not available 08/28/2015 Which Illicit Or Recreational Drugs Have You Used? None [email or web address] Information not available 08/28/2015 Do You Or Have You Ever Used E-cigarettes Or Vape? Never Used Electronic Cigarettes [id number] Information not available 02/28/2019 What Is The Highest Grade Or Level Of School You Have Completed Or The Highest Degree You Have Received? 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 No [email or web address] Information not available 07/25/2021 When Did You Quit Smoking? 16+yearssince lastcigarette 40 Yrs Ago When In College Information not available 08/28/2015 Are There Any Guns Present In Your Home? No Information not available 08/28/2015 Do You Use Insect Repellent Routinely? Yes [email or web address] Information not available 07/25/2021 Live Alone Or With Others? With Others Daughter Information not available 08/28/2015 Does The Patient Have Difficulty Speaking Slovenian? No Information not available 08/28/2015 Does The Patient Have Difficulty Reading Slovenian? No Information not available 08/28/2015 Patient Has Health Care Proxy Signed And In Chart No [email or web address] Information not available 03/09/2018 Marital Status Informatio n not available 08/28/2015 Mosquito Repellent Used Routinely Yes Information not available 08/28/2015 What Was The Date Of Your Most Recent Tobacco Screening? 01/30/2022 Information not available 01/30/2022 How Many Children Do You Have? 1 Information not available 08/28/2015 What Is Your Relationship Status? Single [email or web address] Information not available 07/25/2021 Do You Use Your Seat Belt Or Car Seat Routinely? Yes [email or web address] Information not available 07/25/2021 Seat Belts Used Routinely Yes Information not available 08/28/2015 Smoke Alarm In Home Yes Information not available 08/28/2015 Do You Have Smoke And Carbon Monoxide Detectors In Your Home? Yes [email or web address] Information not available 07/25/2021 Are You Passively Exposed To Smoke? No [email or web address] Information not available 07/25/2021 Do You Or Have You Ever Used Smokeless Tobacco? Never Used Smokeless Tobacco Information not available 10/06/2019 General Stress Level Medium Information not available 10/06/2019 Do You Use Sunscreen Routinely? Yes Information not available 08/28/2015 Do You Or Have You Ever Used Any Other Forms Of Tobacco Or Nicotine? No Information not available 05/02/2021 Sex: Unknown Functional Status Question Answer Note LastModified by Organizat ion Details LastModified Time What is your exercise level? Occasional [email or web address] Information not available 07/25/2021 Mental Status None recorded. Family History Relationship Description Onset Age of this Age Resolved Age Notes LastModified by Organization Details LastModified Time Mother Alzheimer's disease 60 73 early onset [email or web address] Not available 08/28/2015 09:29:24 Mother Operation on gallbladder [email or web address] Not available 10/2015 09:29:24 Father Malignant tumor of prostate 72 [email or web address] Not available 2019 11:56:43 Brother Chronic obstructive pulmonary disease [email or web address] Not available 2019 11:56:51 Medical History Condition Response Thyroid Disease Y Hypothyroid Y GASTROINTESTINAL Y GERD Y CARDIOVASCULAR Y Gynecological HistoryNo gynecological history recorded. Obstetrics History GPAL:G 0 P 0 0 0 0 Immunizations Vaccine Type Date Status Note Provider Nam e and Address Organization Details Recorded Time COVID-19 vaccine, vector-nr, rS-Ad26, PF, 0.5 mL 08/25/2020 completed ALEM Mendoza MA [facility] 09/13/2020 15:48:21 COVID-19 vaccine, vector-nr, rS-Ad26, PF, 0.5 mL 01/25/2021 completed Ani Farooq MA [facility] 05/02/2021 15:00:37 Past Encounters Encounter ID Performer Location Encounter Start Date Encounter Closed Date Diagnosis/Indication Diagnosis SNOMED-CT Code Diagnosis ICD10 Code [id number] MODESTA Patel, [facility], [address] [place] [address] 08/28/2015 08:11:05 08/28/2015 09:54:45 Adult health examination 792811511 Z00.00 Counseling 621647591 Z71 .9 Screening mammography 24 834281 Z12.31 Hypothyroidism 99895311 E03.9 Atrial septal defect 701 07398 Q21.1 Panic 77091703 F41.0 Gastroesop hageal reflux disease 641268969 K21.9 [id number] MODESTA Patel, [facility], [address] [place] [address] 10/09/2015 08:36:27 10/10/2015 09:06:12 Hypothyroidism 35277708 E03.9 Depressive disorder 3548 9007 F32.9 [id number] MODESTA Patel, [facility], [address] [place] [address] 02/28/2018 14:35:23 02/28/2018 15:17:11 Hypothyroidism 00756334 E03.9 Depressive disorder 3548 9007 F32.9 [id number] MODESTA Patel, [facility], [address] [place] [address] 07/19/2018 11:17:41 07/20/2018 09:47:10 Pain of left wrist 0236817126 79435 M25.789 [id number] MODESTA Patel, [facility], [address] [place] [address] 08/29/2018 14:52:36 08/29/2018 15:29:34 Hypothyroidism 12192346 E03.9 Fracture a t wrist and/or hand level 719476303 S62.90XA [id number] ALEXX Patel BRANDT, [facility], [address] [place] [address] 01/09/2019 11:50:17 01/09/2019 13:26:55 Hypothyroidism 43719693 E03.9 Screening for disorder 701386225 Z11.59 Screening mammography 24 180340 Z12.31 [id number] Ashley Banerjee [facility], [facility], [address] [place] [address] 02/28/2019 11:47:53 02/28/2019 14:59:09 Urinary tract infectious disease 56496813 N39.0 Hypothyroidism 72251223 E03.9 [id number] Ashley Banerjee [employer] OPERATOR-[facility], [facility], [address] [place] [address] 10/06/2019 11:24:18 10/09/2019 09:07:16 Adult health examination 792132913 Z00.00 Depression screening 171 139204 Z13.89 Screening for alcohol abuse 557274010 Z13.39 Counseling 011064293 Z71 .89 Hypothyroidism 13239333 E03.9 Closed fra cture of left wrist 1219337916 1068130 S62.92XA Atrial septal defect 701 48932 Q21.1 Gastroesop hageal reflux disease 690621375 K21.9 Major depr essive disorder 480223479 F32.9 [id number] ALEXX Patel BRANDT, [facility], [address] [place] [address] 04/05/2020 11:06:48 04/08/2020 12:47:36 Osteoporosis 32661172 M81.0 Hypothyroidism 07298951 E03.9 Obesity 948828712 E66.9 Pain in right knee 58305 52783 12291 M25.240 [id number] Jess jennings, PT Physical Therapy, [facility] [address] [place] [address] 04/16/2020 17:05:01 04/18/2020 09:57:55 Pain in left knee 3191218447 75770 M25.537 [id number] Jess jennings, PT Physical Therapy, [facility] [address] [place] [address] 05/03/2020 14:37:27 05/03/2020 15:04:43 Pain in left knee 2505298723 93091 M25.116 [id number] Jess jennings, PT Physical Therapy, [facility] [address] [place] [address] 05/15/2020 16:03:03 05/15/2020 17:16:29 Pain in left knee 8855306830 93985 M25.309 [id number] Jess jennings, PT Physical Therapy, [facility] [address] [place] [address] 05/29/2020 12:35:42 05/29/2020 13:11:42 Pain in left knee 8474012999 87627 M25.976 [id number] MODESTA Patel, [facility], [address] [place] [address] 09/13/2020 15:29:05 09/13/2020 16:10:42 Hypothyroidism 72199192 E03.9 Overweight 542706419 E66 .3 [id number] MODESTA Patel , [facility], [address] [place] [address] 12/06/2020 15:36:07 12/06/2020 17:04:23 Hypothyroidism 08174737 E03.9 Osteoporosis 60649794 M8 1.0 [id number] MODESTA aPtel, [facility], [address] [place] [address] 05/02/2021 14:51:11 05/05/2021 10:07:45 Mixed hyperlipidemia 575375944 E78.2 Hypothyroidism 07328211 E03.9 Screening mammography 24 232261 Z12.31 [id number] MODESTA Patel , [facility], [address] [place] [address] 07/25/2021 16:10:45 09/24/2021 10:12:53 Screening for malignant neoplasm of colon 637789660 Z12.11 Hypothyroidism 98109938 E03.9 Adult heal th examination 099352148 Z00.00 Counseling 534657004 Z71 .9 Depression screening 171 905259 Z13.31 Screening for alcohol abuse 105851334 Z13.39 Screening for malignant neoplasm of cervix 178192050 Z12.4 Major depr essive disorder 195934348 F32.9 Osteoporosis 61212850 M8 1.0 [id number] Ashley Banerjee, [employer]-[facility], [facility], [address] [place] [address] 01/30/2022 15:09:12 01/30/2022 16:04:02 Vaccination not done 4732536574 9108 Z28.29 Hypothyroidism 22321273 E03.9 Osteoporosis 31187732 M8 1.0 Health Concerns Section Related Observation LastModified by Organization Detai ls LastModified Time None Recorded Concern Status LastModified by Organization Details LastModified Time None Recorded Advance Directives Directive None Recorded Payers Encounter Date Sequence Insurance Name Policy Number Policy Maher Covered Member ID Maher Member ID Guarantor Name 09/13/2020 1 [facility] [employer] - [place] (HMO) [id number] Margarita Lundberg Belyea [id number] 1 Margarita Belyea 12/06/2020 1 [facility] [employer] [place] (HMO) [id number] Margarita Lundberg Belyea [id number] 1 Margarita Belyea 05/02/2021 1 [place] [employer] Margarita Lundberg Belyea [id number] 1 Margarita Belyea 07/25/2021 1 [place] [employer] Margarita Lundberg Belyea [id number] 1 Margarita Belyea 01/30/2022 1 [place] [employer] Margarita Lundberg Belyea [id number] 1 Margarita Belyea Notes Date Note Type Note Provider Name and Address Organization Details Recorded Time 09/13/2020 text/html blood pressure at goal lost 15 lbsworking in the gardenincreased activity left knee feels really good osteoporosis, was initially upsetting stomach.but now it is going well. hypothyroidism- taking 125 mcg per day got covid shot symptoms was bone pain.for a day 04/05/20 visitinterested in treating osteoporosislast notehistory of ASD, repaired. septal occluder placed 11/2013 cardiology- follow up 2018. , will follow up hx of hypothyroidism, stable, GERD, managed with PPI last pap wnl. colonoscopy 2013. normal mammogram- 01/2019 sometimes feels like she forgets things, but things she does not put on calander. mental health, new job with [employer] is going well but slightly stressful taking citalopram 10 mg mood stable Ashley Sierramonty Banerjee, [address], [address], [facility] 09/15/2020 15:21:41 12/06/2020 text/html Pt here today fo r 3 month f/u hypothyroidism 125 for 6 days. denies palpitationshas lost weight blood pressure at goalno s/e 09/13/20 VISITblood pressure at goal lost 15 lbsworking in the gardenincreased activity left knee feels really good osteoporosis, was initially upsetting stomach.but now it is going well. hypothyroidism- taking 125 mcg per day got covid shot symptoms was bone pain.for a day Ashley Brooklyn Banerjee, [address], [address], [facility] 12/22/2020 13:04:38 05/02/2021 text/html doing well,no fatigueno palpitationsmood- is good continue vitamin d and calcium daily exercising regularly, endorse healthy nutrition, not dietingno complaints Ashley Barahona Chriss, [facility] [address] [place], [address], [facility] 05/04/2021 13:00:27 07/25/2021 text/html Physical Exam/FemaleReported bypatient.PHAPatient is here for a Wellness Visit. She describes her health status as good. Patient's health is better than last year.Notes: 10/06/2019pt presents to establish care, history of ASD, repaired. septal occluder placed 11/2013cardiology- follow up 2017. , will follow up hx of hypothyroidism, stable, GERD, managed with PPI last pap wnl.colonoscopy 2013. normalmammogram- 01/2019 sometimes feels like she forgets things, but things she does not put on calander. mental health, new job with [employer] is going well but slightly stressfull taking citalopram 10 mgmood stableRisk Assessment and Lifestyle Change Counseling 50-64Reported bypatient.Coronary Artery Disease Risk Assessment:No Family history of coronary artery disease; No personal history of diabetes; No history of peripheral vascular disease, AAA, or carotid disease; No personal history of coronary artery disease Breast Cancer Risk Assessment:No family history of breast cancer; No history of breast cancer or dcis Colon Cancer Risk Assessment:No family history of colon polyps or cancer; No history of adenomatous colon polyps Lung Cancer Risk Assessment:Never smoked; No asbestos exposure Fracture Risk Assessment:Unexplained fracture Cognitive/Behavioral Risk Assessment:No personal history of mental illness; No family history of mental illness Safety Risk Assessment:No evidence of abuse/neglectRisk Assessment and Lifestyle Change Counseling 65+ (Medicare)Reported bypatient.Coronary Artery Disease Risk Assessment:No personal history of diabetes; No history of peripheral vascular disease, AAA, or carotid disease; No personal history of coronary artery disease Breast Cancer Risk Assessment:No family history of breast cancer; No history of breast cancer or dcis Colon Cancer Risk Assessment:No family history of pre cancerous colon polyps or cancer Lung Cancer Risk Assessment:Never smoked; No asbestos exposure Fracture Risk Assessment:Unexplained fracture; No anti-seizure medication;Abnormal bone density osteoporosis; Taking Vitamin D supplement; Patient has higher than average risk for osteoporotic bone fractures Cognitive/Behavioral Risk Assessment:Personal history of mental illness;Family history of mental illness Safety Risk Assessment:Has grab bars in bathroom; Has rails on steps; No falls; No evidence of abuse/neglect Functional Status:Patient does not have trouble hearing the television or radio when others do not.; Patient does not have to strain or struggle to hear/understand conversations; Patient does not need help with preparing meals, transportation, shopping, taking medicine, managing finances, or other activities of daily living.; Patient does not have visual loss that interferes with daily activities; Patient was not unsteady and did not take longer than 30 seconds during the timed get up and go test.; Patient reports no falls in the past 6 months. Patient presents to the office today for annual wellness visit due for paputd on colonoscopy and mammogram daughter- moved out [place] feeling well handling two cats and two ferrets nutrition and exercise,walking on sundays coivd got boosterthyroid stable Ashley Banerjee, [employer] [address] [place] [address], [address], [facility] 07/27/2021 12:07:10 01/30/2022 text/html pt presents for follow up regarding recent bone density - results not available at time of visitresults not available tolerating citalopram no side effectscontinues with wt loss efforts tsh- still 112 osteoporosis-weight bearing exercisewalks up and down stairspicks up littergoes outside eats yogurt took vitamin k with it 07/25/21 visitPatient presents to the office today for annual wellness visit due for paputd on colonoscopy and mammogram daughter- moved out with [place] in [place] feeling well handling two cats and two ferrets nutrition and exercise,walking on sundays covid got boosterthyroid stable Ashley Banerjee, [facility]-[address], [place], [address], [facility] 01/31/2022 12:07:57 OBGyn Episode No OBEpisode recorded.
--- OUTSIDE RECORDS SUMMARY | 2024-03-16 08:07 | XMS_ITS | Continuity of Care Document ---
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 Name Role Phone Xenia Hogan MD Primary Care Physician Encounter 03/03/24 - 03/10/24 [facility] [address], [address] [place] [address]- Attending Physician: Tiesha Maldonado MD Admitting Physician: Tiesha Maldonado MD Referring Physician: Tiesha Maldonado MD Encounter Type: OutPatient One Time Allergies, Adverse Reactions, Alerts Substance Criticality Severity Reaction Reaction Severity Status sulfADIAZINE Active Medications benzonatate 200 mg oral capsule 1 capsule = 200 mg, By Mouth, 3 times a day, PRN as needed for cough, # 30 capsule, 0 Refills, Maintenance, 03/03/24 7:28:00 PM EST, Capsule, [id number], Partial fill upon patient request if the prescription is for a schedule II opioid drug. Start Date: 03/03/24 Status: Ordered Quantity: 30.0 Unit: capsule Repeat number: 1 citalopram 10 mg oral tablet 10 mg, 1, tablet, By Mouth, Daily, Refills 0, Maintenance, 10/30/23 11:56:00 AM EDT, Partial fill upon patient request if the prescription is for a schedule II opioid drug. Start Date: 10/30/23 Status: Ordered Repeat number: 1 levothyroxine 0.025 mg oral tablet 1 tablet = 25 mcg, By Mouth, Daily, 0 Refills, Maintenance, 10/30/23 11:56:00 AM EDT, Partial fill upon patient request if the prescription is for a schedule II opioid drug. Start Date: 10/30/23 Status: Ordered Repeat number: 1 Results Radiology Reports * Exam Date Time Procedure Performing Provider Status 03/03/24 5:33 PM Chest 2 Views Frontal and Lat Jayleen Centeno; Velma (Verified) Notes: (Chest 2 Views Frontal and Lat) Reason For Exam: Cough RESULT: Chest 2 Views Frontal and Lat Examination: Chest performed on 03/03/2024. History: Cough. Findings: Frontal and lateral views of the chest are submitted without comparison. The cardiac and mediastinal silhouettes are within normal limits. An ASD closure device is seen. The lungs are clear. The osseous and soft tissue structures are unremarkable. Impression: There is no acute cardiopulmonary disease. WSN: [id number] Ordering Physician: Tiesha Maldonado Dictated By: Sultana Castañeda MD Dictated Date/Time: 03/03/24 6:02 pm Reviewed By: Sultana Castañeda MD Signed By: Sultana Castañeda MD Signed Date/Time: 03/03/24 6:02 pm Transcribed By: YESSI Transcribed Date/Time: 03/03/24 5:59 pm Social History Social History Type Response Sex Female Sex Representation Female (finding) Patient Care team information Care Team Personnel Name: Xenia Hogan MD Position: Reference Physician Member Role: PCP Address: [address] [place] [address] Telecom: Care Team Related Persons Name: LILO HUTTON Insurance Providers Guarantor name: SAMEERA WIGGINS [employer] Plan Information #: 1 Payer: MEDICARE PART B OUTPT Member Number: [id number] Policy Number: NA Group Number: NA Health Plan Information #: 2 Payer: NA Member Number: [id number] Policy Number: NA Group Number: NA
== END 2024-03-16 08:05 | disposition home or self-care (01) ==
LOC: HO.MAMMO 08:04
PROVIDERS: Visit Provider Internal Medicine
DX: M81.0 Age-related osteoporosis without current pathological fracture (principal); Z12.31 Encounter for screening mammogram for malignant neoplasm of breast
CPT/HCPCS: 77063; 77067; 77080

== ENCOUNTER → 2024-03-16 08:30 | Outpatient (BNV) | payer MEDICARE, SELFPAY | PROVIDERS: Visit Provider Internal Medicine | DX: Z12.31 Encounter for screening mammogram for malignant neoplasm of breast (principal) | CPT/HCPCS: 77063; 77067 ==

== ENCOUNTER 2024-05-17 08:29 | Outpatient (REF) | payer MEDICARE, SELFPAY ==
[2024-05-17 09:58] LABS: MANUAL DIFF FLAG NO
[2024-05-17 10:46] LABS: Basophils Absolute Auto 0.1 X10*3/uL (0.0-0.2); Eosinophils Absolute Auto 0.2 X10*3/uL (0.0-0.4); Eosinophils Percent Auto 4.1 % (0-4); Hematocrit 34.2 % (37.0-47.0); Hemoglobin 11.3 g/dl (12.0-16.0); Imm Gran Abs Auto 0.01 X10*3/uL (0.00-0.03); Imm Gran Pct Auto 0.2 % (0.0-0.4); Lymphocytes Absolute Auto 1.8 X10*3/uL (1.2-4.9); Lymphocytes Percent Auto 30.7 % (20-40); Mean Corpuscular Hemoglobin 29.9 pg (27.0-33.0); Mean Corpuscular Volume 90.5 fL (80.0-98.0); Mean Platelet Volume 9.2 fL (9.4-12.3); Monocytes Absolute Auto 0.6 X10*3/uL (0.1-1.2); Monocytes Percent Auto 9.8 % (2-11); Neutrophils Absolute Auto 3.1 x10*3/uL (2.0-8.3); Neutrophils Percent Auto 54.2 % (45-73); Platelet Count 182 X10*3/uL (160-400); Red Blood Count 3.78 X10*6/uL (4.20-5.50); Red Cell Distribution Width 12.1 % (11.0-16.0); White Blood Count 5.8 X10*3/uL (4.8-10.8)
[2024-05-17 11:23] LABS: Alanine Aminotransferase 21 U/L (0-31); Albumin Level 4.3 g/dL (3.5-5.0); Alkaline Phosphatase 54 U/L (39-117); Anion Gap 11 (12-20); Aspartate Amino Transferase 25 U/L (5-31); Bilirubin Total 0.7 mg/dL (0.0-1.0); Blood Urea Nitrogen 24 mg/dL (9-16); Calcium 9.2 mg/dL (8.4-10.2); Carbon Dioxide 23 mmol/L (22-29); Chloride 110 mmol/L (96-108); Estimated Glomerular Filt Rate > 60; Glucose Random 97 mg/dL (60-115); Sodium 140 mmol/L (135-145); Total Protein 7.7 g/dL (6.5-8.0)
--- OUTSIDE RECORDS SUMMARY | 2024-05-17 11:27 | XMS_ITS | Clinical Summary ---
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 Continue to speak with EAP/BeWell onsite health coach to manage life's stressors and to [...]
--- OUTSIDE RECORDS SUMMARY | 2024-05-17 11:27 | XMS_ITS | Continuity of Care Document ---
Author Organization [facility] Address [address] [place] [address] Phone Care Team Providers Care Utility Mechanic Supervisor Name Role Phone Jay Finney MD Unavailable [...] Diagnoses Date Provider Providers Copied on Encounter [facility], [address] [place] [address], [id number], tel:[phone] C [facility] No Information 8 Reg Thompson. [address] [place] [address], [address], [id number], [place]. tel:[phone] Referring Provider: Jose Angel Gordon, [address] [place] [address] [place] [address], [address] . tel:[phone] [facility], [address] [place] [address], [id number], tel:[phone] Galina [facility] Dyspnea, unspecifiedAt rial septal defect 8 Maldonado Walter. [address] [place] [address], [address], [id number], [place]. tel:[phone] Referring Provider: Jose Angel Gordon, [address] [place] [address] [address], [address] . tel:[phone] NEW PATIENT VISIT [facility], [address] [place] [address], [id number], [place] tel:[phone] [facility] ASD (chief complaint)Hyp ertension (chief complaint)diz ziness (chief complaint) Atrial septal defectEssenti al (primary) hypertensionB silverio mass index (BMI) 29.0-29.9, adultDizzines sDyspnea 8 Maldonado Walter. [address] [place] [address], [address], [place], [id number], [place]. tel:[phone] Referring Provider: Jose Angel Gordon, [address] [place] [address] [address], [place], [address] . tel:[phone] OFFICE VISIT-ESTABL [facility], [address] [place] [address], [id number], [place] tel:[phone] [facility] ASD (chief complaint)Hyp ertension (chief complaint) Ostium secundum type atrial septal defectHyperte nsion, BenignOverwei ght 5 Maldonado Walter. [address] [place] [address], [address], [place], [id number], [place]. tel:[phone] [facility], [address] [place] [address], [id number], [place] tel:[phone] [facility] Atrial Septal DefectHyperte nsion, Benign 5 Maldonado Walter. [address] [place] [address], [address], [place], [id number], [place]. tel:[phone] Referring Provider: Jose Angel Gordon, [address] [place] [address] Suite [facility], [place], [address] . tel:[phone] [facility], [address] [place] [address], [id number], [place] tel:[phone] [facility] No Information 4 Maldonado Walter. [address] [place] [address], [address], [id number], [place]. tel:[phone] OFFICE VISIT-ESTABL [facility], [address] [place] [address], [id number], [place] tel:[phone] [facility] Hypertension (chief complaint)ASD (chief complaint) Ostium secundum type atrial septal defectHyperte nsion, BenignObesity unspecified, BMI 30-39Overweig ht 4 Maldonado Walter. [address] [place] [address], [address], [place], [id number], [place]. tel:[phone] [facility], [address] [place] [address], [id number], [place] tel:[phone] C [facility] Atrial Septal DefectDizzine ss 4 Maldonado Walter. [address] [place] [address], [facility] [place] [address], [id number], [place]. tel:[phone] Referring Provider: Jose Angel Gordon, [address] [place] [address] [address], [place], [address] . tel:[phone] OFFICE/OUTPA TIENT VISIT EST [facility], [address] [place] [address], [id number], [place] tel:[phone] [facility] Ostium secundum type atrial septal defectHyperte nsion, BenignObesity unspecified, BMI 30-39 4 Maldonado Walter. [address] [place] [address], [address], [id number], [place]. tel:[phone] [facility], [address] [place] [address], [id number], [place] tel:[phone] C [facility] No Information 4 Maldonado Walter. [address] [place] [address], [facility] [place] [address], [place], [id number], [place]. tel:[phone] Referring Provider: Jose Angel Gordon, [address] [place] [address] [place] [address], [address] . tel:[phone] [facility], [address] [place] [address], [id number], [place] tel:[phone] No Location Atrial Septal Defect No Information OBSERVATION DISCHARGE [facility], [address] [place] [address], [id number], [place] tel:[phone] [facility] Ostium secundum type atrial septal defect 4 Maldonado Walter. [address] [place] [address], [address], [id number], [place]. tel:[phone] Referring Provider: Alyssa Moyer, [address] [place] [address] [address], [place], [address] . tel:[phone] [facility], [address] [place] [address], [id number], [place] tel:[phone] [facility] OP No Information 4 Maldonado Walter. [address] [place] [address], [address], [place], [id number], [place]. tel:[phone] Referring Provider: Jose Angel Gordon, [address] [place] [address] [address], [place], [address] . tel:[phone] [facility], [address] [place] [address], [id number], [place] tel:[phone] [facility] Ostium secundum type atrial septal defect 4 Maldonado Walter. [address] [place] [address], [address], [place], [id number], [place]. tel:[phone] Referring Provider: Jose Angel Gordon, [address] [place] [address] [address], [address] . tel:[phone] OFFICE/OUTPA TIENT VISIT EST [facility], [address] [place] [address], [place], [id number], [place] tel:[phone] [facility] Ostium secundum type atrial septal defect 3 Maral Shah. [address] [place] [address], [address], [id number], [place]. tel:[phone] Referring Provider: Alyssa Moyer, [address] [place] [address] [address], [place], [address] . tel:[phone] [facility], [address] [place] [address], [place], [id number], [place] tel:[phone] [facility] Ostium secundum type atrial septal defect 3 Maldonado Walter. [address] [place] [address], [address], [id number], [place]. tel:[phone] Referring Provider: Alyssa Moyer, [address] [place] [address] [address], [place], [address] . tel:[phone] [facility], [address] [place] [address], [place], [id number], [place] tel:[phone] [facility] Mitral valve disordersTric uspid valve disorders, specified as nonrheumaticO stium secundum type atrial septal defect 3 Maral Shah. [address] [place] [address], [address], [id number], [place]. tel:[phone] Referring Provider: Alyssa Moyer, [address] [place] [address] [address], [place], [address] . tel:[phone] OFFICE/OUTPA TIENT VISIT NEW [facility], [address] [place] [address], [place], [id number], [place] tel:[phone] C [facility] Ostium secundum type atrial septal defectFatigue / Malaise 2-201 3 Maral Shah. [address] [place] [address], [address], [place], [id number], [place]. tel:[phone] Referring Provider: Alyssa Moyer, [address] [place] [address] [address], [place], [address] . tel:[phone] [facility], [address] [place] [address], [place], [id number], [place] tel:[phone] C [facility] Murmur 8-201 3 Maral Shah. [address] [place] [address], [address], [id number], [place]. tel:[phone] Referring Provider: Jay Brasher, [address] [place] [address] [address], [place], [address]. tel:[phone] Family History Family Member Type Diagnosis Age [...] BCBS PPO Other State ARON FEP BL [id number] Social History Type Description Quantity Date Captured [...] Future Order: Lab Order CBC With Differential/Platelet ([id number]), Sent on: Sent Future Order: Lab Order Basic Me tabolic Panel (8) ([id number]), Sent on: Sent History Of Present Illness [...]
[2024-05-17 11:40] LABS: Free T4 (Free Thyroxine) 1.53 ng/dL (0.71-1.85); Thyroid Stimulating Hormone 1.34 uIU/mL (0.32-4.0)
== END 2024-05-17 08:30 | disposition home or self-care (01) ==
LOC: HO.LAB 08:29
PROVIDERS: PCP Internal Medicine; Visit Provider Internal Medicine
DX: Z00.00 Encounter for general adult medical examination without abnormal findings (principal); E03.9 Hypothyroidism, unspecified; D64.9 Anemia, unspecified; N20.0 Calculus of kidney; E78.00 Pure hypercholesterolemia, unspecified; R79.89 Other specified abnormal findings of blood chemistry; M85.80 Other specified disorders of bone density and structure, unspecified site
CPT/HCPCS: 36415; 80053; 84439; 84443; 85025; 96127; 99397

== ENCOUNTER 2024-05-17 08:29 | Outpatient (AMB) | payer MEDICARE, SELFPAY ==
--- NOTE | 2024-05-17 08:31 | A.OFFPC_ITS ---
Vital Signs 05/17/24 08:32 Height 5 ft 2 in Weight 129 lb BMI 23.6 BP 102/62 Blood Pressure Location Lt brachial Position Sitting Pulse 61 Pulse Source Pulse Oximeter Pulse Oximetry (%) 96 Oxygen Delivery Method Room Air Intake Visit Reasons: pe Allergies Sulfa (Sulfonamide Antibiotics) Allergy (Intermediate, Verified 05/17/24 08:32) Vomiting Medication List - Last Reconciled 05/17/24 by Xenia Hogan MD ascorbic acid (vitamin C) mg PO chlorpheniramine maleate 4 mg PO .QHS levothyroxine 112 mcg PO DAILY magnesium oxide 500 mg PO DAILY mecobalamin (vitamin B12) mcg PO [Thyroid Support PO .QD] [vertigo SUpport PO .QD] [vertisis cocculus indicus] Tobacco use date assessed: 05/17/24 Fall risk assessment: No Falls in past year Last assessed Fall Risk: 05/17/24 Dental Screening Dental Screen Date: 05/17/24 Did you have a dental visit in the last 12 months?: No Did you have a dental problem in the last 6 months where you did not have access to dental care?: No Was dental information given to patient?: Patient has dentist [facility] Medical History (Updated 05/17/24 @ 09:07 by Xenia Hogan MD) Breast cancer screening by mammogram Screening for osteoporosis Cervical cancer screening Wrist fracture, left Surgical History (Updated 01/31/24 @ 14:20 by Xenia Hogan MD) History of Amplatzer atrial septal defect closure Hx of cholecystectomy H/O section Family History (Updated 05/17/24 @ 08:34 by Erinn Samuels CMA) Mother Alzheimer disease Father Alzheimer disease Social History (Updated 01/31/24 @ 14:08 by Xenia Hogan MD) Household Members: Children Housing: House Alcohol intake: never Patient Tobacco Use Status: Former Tobacco user Tobacco use type: Cigarette Years Smoked: quit 2004 smoked 1 years 2 cigars a day e-Cigarette/Vaping Use: Never Used service: No Current occupational status: retired Cognitive needs: No Hearing needs: No Vision needs: Yes Questionnaire PHQ-9 Over the last 2 weeks, how often have you been bothered by any of the following problems? 1. Little interest or pleasure in doing things: not at all 2. Feeling down, depressed, or hopeless: not at all 3. Trouble falling or staying asleep, or sleeping too much: not at all 4. Feeling tired or having little energy: not at all 5. Poor appetite or overeating: not at all 6. Feeling bad about yourself - or that you are a failure or have let yourself or your family down: not at all 7. Trouble concentrating on things, such as reading the newspaper or watching television: not at all 8. Moving or speaking so slowly that other people could have noticed. Or the opposite - being so fidgety or restless that you have been moving around a lot more than usual: not at all 9. Thoughts that you would be better off or of hurting yourself in some way: not at all Total score: 0 Depression Screening Interpretation: Negative Depression Screening Done: Yes 24958 - PHQ-9 Billing: Yes Source: Developed by Drs. Jesse Portillo, Lisa Chavez, Steven Gregg and colleagues, with an educational janice from [employer]. Thrive Questionnaire Date Thrive assessed: 05/17/24 I am a: Patient What is your living situation today?: I have a steady place to live Within the past 12 months, did the food you bought not last and you didn't have the money to get more?: Never true Within the past 12 months, did you worry whether your food would run out before you got money to buy more?: Never true Do you have trouble paying for medicines?: No Do you have trouble getting transportation to medical appointments?: No Do you have trouble paying your heating and electricity bill?: No Do you have trouble taking care of your child, family member or friend?: No Do you have trouble with day-to-day activities such as bathing, preparing meals, shopping, managing finances, etc.?: No Are you currently unemployed and looking for a job?: No Are you interested in more education?: No Please select the resources that you would like help with: None Currently or been in a relationship where the following occur: No concerns reported THRIVE Score: 0 AUDIT C Alcohol Use Questionnaire (AUDIT-C) 1. How often do you have a drink containing alcohol?: 2-4 times a month 2. How many drinks containing alcohol do you have on a typical day when you are drinking?: 1 or 2 3. How often do you have six or more drinks on one occasion?: Never Total Score: 2 JIA-7 AMB Questionnaire JIA-7 Date JIA - 7 assessed: 05/17/24 Feeling nervous, anxious, or on edge: 2 = More than half the days Not being able to stop or control worryin = More than half the days Worrying too much about different things: 2 = More than half the days Trouble relaxin = Several days Being so restless that it is hard to sit still: 0 = Not at all Becoming easily annoyed or irritable: 0 = Not at all Feeling afraid as if something awful might happen: 0 = Not at all Total JIA-7 score (0-4 normal; 5-9 mild; 10-14 moderate; 15-21 severe): 7 Source: Developed by Drs. Jesse Portillo, Lisa Chavez, Steven Gregg and colleagues, with an educational janice from [employer]. JIA-7 Assessment Billing JIA-7 Assessment Tool: JIA-7 Assessment 83508 Review of Systems Const Denies poor appetite and Denies weakness Eyes Denies no additional complaints ENT Reports Normal hearing present, Denies dizziness, Denies nasal congestion, Denies tinnitus and Denies sore throat Card Denies chest pain, Denies syncope, Denies rapid heart rate and Denies dyspnea Resp Denies cough and Denies dyspnea GI Denies change in stool character, Reports constipation, Denies diarrhea, Denies nausea and Denies vomiting Denies urinary frequency, Denies difficulty voiding and Denies dysuria Neuro Reports Normal hearing present, Denies confusion, Denies dizziness, Denies syncope and Denies weakness Psych Denies confusion Physical exam (Primary Care) Vital Signs: Last Vital Signs Pulse 61 05/17/24 08:32 BP 102/62 05/17/24 08:32 Pulse Ox 96 05/17/24 08:32 Oxygen Delivery Method Room Air 05/17/24 08:32 BMI result Body Mass Index 23.6 Tobacco/Smoking Status: Tobacco use Status Tobacco use date assessed 05/17/24 05/17/24 08:34 Patient Tobacco Use Status Former Tobacco user 05/17/24 08:32 Tobacco use type Cigarette 05/17/24 08:32 e-Cigarette/Vaping Use Never Used 05/17/24 08:32 PHQ-9: PHQ-9 Score PHQ-9: Total score 0 05/17/24 09:09 Depression Screening Interpretation: Negative Thrive Assessment: Date of Thrive Assessment Date Thrive assessed 05/17/24 05/17/24 08:41 Currently or been in a relationship where the following occur: No concerns reported Const General: alert and awake; No confusion Orientation/consciousness: No confusion HENMT Head: Yes normocephalic Ears: external ears normal and TM's normal bilaterally Face and sinus: Yes normal facial exam Mouth: moist mucous membranes Throat: Yes tonsils normal Eyes Conjunctivae: conjunctivae normal Pupils: Equal, round and reactive pupils present and Pupil accommodation reflex normal Direct Ophthalmoscopy: normal light reflex Neck Neck: No lymphadenopathy Thyroid: Thyroid normal Chest Chest palpation & inspection: normal inspection of the chest Resp Effort & Inspection: normal respiratory effort and no audible wheezes Auscultation: clear to auscultation bilaterally, no crackles, no wheezes and lung sounds not diminished Cardio Rate: regular rate Rhythm: regular rhythm Peripheral pulses: radial pulses present and dorsalis pedis present GI Palpation (GI): no masses Auscultation: normal bowel sounds and normoactive bowel sounds Rectal Exam - Female: deferred Skin General skin exam: no rashes or lesions noted Rashes: no rashes Neuro General: deep tendon reflexes 2+ bilaterally and No confusion Cranial nerves: Yes Equal, round and reactive pupils present, Yes Midline tongue present, Yes Normal hearing present and Yes Ability to bilaterally elevate shou lders present Cognition (Neuro): normal cognition Gait exam (Neuro): Normal gait present Motor exam (neuro): 5/5 motor strength present throughout Deep tendon reflexes (DTR's): Right brachioradialis reflex intensity grade: 2+, Left brachioradialis reflex intensity grade: 2+, Right patellar reflex intensity grade: 2+ and Left patellar reflex intensity grade: 2+ Extrem General: No edema Coding Level of Care Code Est Pt Prev Care >65y(23119) Diagnoses Annual physical exam Z00.00 Acquired hypothyroidism E03.9 Hypothyroidism type: acquired Anemia, unspecified type D64.9 Anemia type: unspecified type Renal calculus, right N20.0 Hypercholesterolemia E78.00 Elevated LFTs R79.89 Osteopenia M85.80 Colon cancer screening Z12.11 Additional Codes JIA-7 Assessment Billing - JIA-7 Assessment Tool: JIA-7 Assessment 11153 ([id number]) PHQ-9 - 75486 - PHQ-9 Billing: Yes ([id number]) Assessment & Plan Assessment & Plan (1) Annual physical exam: Code(s): Z00.00 - Encounter for general adult medical examination without abnormal findings Category: Medical Plan: Patient is advised to eat healthy, keep well hydrated, keep active and have adequate sleep. (2) Hypothyroidism: Code(s): E03.9 - Hypothyroidism, unspecified Category: Medical Qualifiers: Hypothyroidism type: acquired Qualified Code(s): E03.9 - Hypothy roidism, unspecified Plan: Will continue to monitor TSH (3) Anemia: Code(s): D64.9 - Anemia, unspecified Category: Medical Qualifiers: Anemia type: unspecified type Qualified Code(s): D64.9 - Anemia, unspecified Plan: Mild and will continue to monitor (4) Renal calculus, right: Code(s): N20.0 - Calculus of kidney Category: Medical Plan: Keep well hydrated (5) Hypercholesterolemia: Code(s): E78.00 - Pure hypercholesterolemia, unspecified Category: Medical Plan: Avoid fried foods, chicken skin, eggs, butter margarine, pastries and meat. Be it pork or beef they have a lot of cholesterol patient's cholesterol on retesting has been better (6) Elevated LFTs: Code(s): R79.89 - Other specified abnormal findings of blood chemistry Category: Medical Plan: Continue to monitor liver function tests ultrasound done of the liver is negative and hepatitis is negative (7) Osteopenia: Comment: 02/2024 Code(s): M85.80 - Other specified disorders of bone density and structure, unspecified site Category: Medical Plan: Discussed about calcium and vitamin-D and keeping active discussion about further treatments also. (8) Colon cancer screening: Code(s): Z12.11 - Encounter for screening for malignant neoplasm of colon Category: Medical Plan: Patient is reminded about colonoscopy Plan History of Present Illness The patient is a 69-year-old female presenting for an annual physical examination. Her medical history includes hypothyroidism with persistently elevated TSH levels despite levothyroxine treatment, necessitating ongoing evaluation of the dosing adequacy. She has hypocholesterolemic treatment modifications resulting in improved lipid profiles. Osteopenia was identified through bone densitometry and is monitored due to increased fragility risk. The patient?s history of breast cancer treated with lumpectomy and adjuvant therapies is part of her ongoing surveillance strategy for recurrence. She exhibits mild anemia from recent lab work, with no overt symptomatology. Liver function tests reflect marked elevation, and recent imaging shows a liver cyst and a calculous renal condition on the right side. Despite medication use, the liver enzyme anomaly is unexplained. Allergies are primarily managed with chlorpheniramine, yet the patient's elevated eosinophils suggest an unremitting allergic component possibly impacting respiratory or systemic health. Health Maintenance - Mammogram up to date; follow-up scheduled for potential calcifications - Bone density test indicated osteopenia; need for calcium and vitamin D discussed - Blood tests revealed mild anemia monitored with future follow-up - Hepatitis profile negative - Discussion of lifestyle and dietary management for cholesterol and general bone health Social History - Does not consume alcohol or tobacco - Current nutritional intake includes vitamins and supplements, including vitamin C, potassium, and magnesium - Regular daily intake of approximately 4-5 cups of water, below recommended levels for optimal hydration Review of Systems - General: Denies episodes of passing out, dizziness - Cardiovascular: Denies chest pain or shortness of breath - Gastrointestinal: Reports occasional heartburn, denies nausea or vomiting - Genitourinary: Denies urinary frequency, reports waking once per night to urinate - Musculoskeletal: Denies fractures or bone pain - Neurological: Denies headaches or transient focal neurological deficits - Respiratory: Denies shortness of breath, wheezing, or coughing Physical Exam General: Cooperative, healthy appearing, comfortable, no acute distress and well developed Orientation: Patient oriented x3 Limitations: No limitations Head: Normal to inspection Ears: Hearing grossly normal bilaterally, slight ear wax noted Nose: Normal external nose present Face and sinus: Normal facial exam Eyes: Appearance normal, both eyes and all related structures Neck: Normal visual inspection and Yes full ROM Respiratory: Normal respiratory effort and able to speak in complete sentences. Clear to auscultation bilaterally Cardiovascular: Regular rate and rhythm. Normal S1 and S2 GI: Normal to inspection. Soft to palpation and nontender Skin: No rashes or lesions noted Neuro: Patient oriented x3 Extremities: Normal to inspection Results - Labs: Hemoglobin 11.9 g/dL, TSH markedly elevated (>100), cholesterol improved (LDL at 127), eosinophils elevated - Tests: Liver enzymes elevated (AST 193 U/L, ALT 207 U/L) - Imaging: Liver ultrasound shows 4 cm cyst, right 8 mm renal calculous - Screenings: Regular mammogram and hepatitis profile results negative Plan Thorough follow-up and management are warranted for the patient's health conditions. Regular thyroid function tests will determine if levothyroxine adjustments are needed. Lifestyle modifications have proven effective for lipid control; continuation is endorsed. An appropriate intake of calcium and vitamin D should be maintained due to osteopenia. The patient's mild anemia requires monitoring, though interventions remain broadly supportive. Elevated liver enzymes suggest possible supplement contraindications; cautionary measures include eliminating non-essential therapies pending further labs. Existing renal calculi necessitate improved hydration and potential nephrologic advice if symptomatic. The patient's cancer history dictates sustained vigilance in follow-up. Overall, routine re-assessment and laboratory analyses bolster health maintenance strategies. Patient was informed and verbally consented to the use of an ambient scribe for clinic note documentation during this visit. Discussion Notes I discussed the management of hypothyroidism with the patient, emphasizing the need for periodic evaluations of TSH levels to adjust her levothyroxine dosage appropriately. For her lipid management, we reviewed the benefits of her current regimen, which has resulted in favorable cholesterol levels. We outlined the impact of osteopenia on her bone health, promoting dietary calcium and vitamin D supplementation. The patient's liver enzyme elevation prompted a review of her current supplement intake. We agreed to hold any non-essential medications to assess liver function. I explained the importance of monitoring her renal calculus and encouraged adequate hydration to potentially mitigate stone formation. Her cancer history was reviewed, ensuring continued adherence to recommended surveillance schedules. Patient Instructions - Continue current dose of levothyroxine; update TSH test - Maintain lifestyle changes for lipid control - Ensure adequate calcium and vitamin D intake - Monitor any abdominal or flank pain, as they may be related to her renal stone - Follow diagnostic testing and follow-up appointments for thyroid function and liver panel - Abstain from non-essential supplements until further notice - Increase daily water intake to at least 6-8 glasses - Observe any changes in symptoms related to known diagnoses and seek care as needed - Follow through with scheduled mammography and any additional breast imaging appointments Orders: Orders Free T4 (Free Thyroxine) Today E03.9 - Hypothyroidism, unspecified Comprehensive Met. Panel Today E03.9 - Hypothyroidism, unspecified Thyroid Stimulating Hormone Today E03.9 - Hypothyroidism, unspecified Complete Blood Count Auto Diff Today E03.9 - Hypothyroidism, unspecified
[2024-05-17 08:32] VITALS: BP 102/62; PULSE 61; O2SAT 96; BMI 23.6
--- OUTSIDE RECORDS SUMMARY | 2024-05-17 09:01 | XMS_ITS | Continuity of Care Document ---
Author Organization [facility] Address [address] [place] [address] Phone Care Team Providers Care Patrol Officer Name Role Phone Jay Finney MD Unavailable [...] Diagnoses Date Provider Providers Copied on Encounter [facility], [address] [place] [address], [id number], tel:[phone] C [facility] No Information 8 Reg Thompson. [address] [place] [address], [address], [id number], [place]. tel:[phone] Referring Provider: Jose Angel Gordon, [address] [place] [address] [place] [address], [address] . tel:[phone] [facility], [address] [place] [address], [id number], tel:[phone] Galina [facility] Dyspnea, unspecifiedAt rial septal defect 8 Maldonado Walter. [address] [place] [address], [address], [id number], [place]. tel:[phone] Referring Provider: Jose Angel Gordon, [address] [place] [address] [address], [address] . tel:[phone] NEW PATIENT VISIT [facility], [address] [place] [address], [id number], [place] tel:[phone] [facility] ASD (chief complaint)Hyp ertension (chief complaint)diz ziness (chief complaint) Atrial septal defectEssenti al (primary) hypertensionB silverio mass index (BMI) 29.0-29.9, adultDizzines sDyspnea 8 Maldonado Walter. [address] [place] [address], [address], [id number], [place]. tel:[phone] Referring Provider: Jose Angel Gordon, [address] [place] [address] [address], [place], [address] . tel:[phone] OFFICE VISIT-ESTABL [facility], [address] [place] [address], [id number], [place] tel:[phone] [facility] ASD (chief complaint)Hyp ertension (chief complaint) Ostium secundum type atrial septal defectHyperte nsion, BenignOverwei ght 5 Maldonado Walter. [address] [place] [address], [address], [id number], [place]. tel:[phone] [facility], [address] [place] [address], [id number], [place] tel:[phone] [facility] Atrial Septal DefectHyperte nsion, Benign 5 Maldonado Walter. [address] [place] [address], [address], [id number], [place]. tel:[phone] Referring Provider: Jose Angel Gordon, [address] [place] [address] Suite [facility], [place], [address] . tel:[phone] [facility], [address] [place] [address], [id number], [place] tel:[phone] [facility] No Information 4 Maldonado Walter. [address] [place] [address], [address], [id number], [place]. tel:[phone] OFFICE VISIT-ESTABL [facility], [address] [place] [address], [id number], [place] tel:[phone] [facility] Hypertension (chief complaint)ASD (chief complaint) Ostium secundum type atrial septal defectHyperte nsion, BenignObesity unspecified, BMI 30-39Overweig ht 4 Maldonado Walter. [address] [place] [address], [address], [id number], [place]. tel:[phone] [facility], [address] [place] [address], [id number], [place] tel:[phone] C [facility] Atrial Septal DefectDizzine ss 4 Maldonado Walter. [address] [place] [address], [facility] [address], [id number], [place]. tel:[phone] Referring Provider: Jose Angel Gordon, [address] [place] [address] [address], [address] . tel:[phone] OFFICE/OUTPA TIENT VISIT EST [facility], [address] [place] [address], [id number], [place] tel:[phone] [facility] Ostium secundum type atrial septal defectHyperte nsion, BenignObesity unspecified, BMI 30-39 4 Maldonado Walter. [address] [place] [address], [address], [id number], [place]. tel:[phone] [facility], [address] [place] [address], [id number], [place] tel:[phone] C [facility] No Information 4 Maldonado Walter. [address] [place] [address], [facility] [address], [id number], [place]. tel:[phone] Referring Provider: Jose Angel Gordon, [address] [place] [address] [place] [address], [address] . tel:[phone] [facility], [address] [place] [address], [id number], [place] tel:[phone] No Location Atrial Septal Defect No Information OBSERVATION DISCHARGE [facility], [address] [place] [address], [id number], [place] tel:[phone] [facility] Ostium secundum type atrial septal defect 4 Maldonado Walter. [address] [place] [address], [address], [id number], [place]. tel:[phone] Referring Provider: Alyssa Moyer, [address] [place] [address] [address], [place], [address] . tel:[phone] [facility], [address] [place] [address] [address], [id number], [place] tel:[phone] [facility] No Information 4 Maldonado Walter. [address] [place] [address], [address], [id number], [place]. tel:[phone] Referring Provider: Jose Angel Gordon, [address] [place] [address] [address], [place], [address] . tel:[phone] [facility], [address] [place] [address], [id number], [place] tel:[phone] [facility] Ostium secundum type atrial septal defect 4 Maldonado Walter. [address] [place] [address], [address], [id number], [place]. tel:[phone] Referring Provider: Jose Angel Gordon, [address] [place] [address] [address], [address] . tel:[phone] OFFICE/OUTPA TIENT VISIT EST [facility], [address] [place] [address] [address], [id number], [place] tel:[phone] [facility] Ostium secundum type atrial septal defect 3 Maral Shah. [address] [place] [address], [address], [id number], [place]. tel:[phone] Referring Provider: Alyssa Moyer, [address] [place] [address] [address], [address] . tel:[phone] [facility], [address] [place] [address] [address], [id number], [place] tel:[phone] [facility] Ostium secundum type atrial septal defect 3 Maldonado Walter. [address] [place] [address], [address], [id number], [place]. tel:[phone] Referring Provider: Alyssa Moyer, [address] [place] [address] [address], [address] . tel:[phone] [facility], [address] [place] [address] [address], [id number], [place] tel:[phone] [facility] Mitral valve disordersTric uspid valve disorders, specified as nonrheumaticO stium secundum type atrial septal defect 3 Maral Shah. [address] [place] [address], [address], [id number], [place]. tel:[phone] Referring Provider: Alyssa Moyer, [address] [place] [address] [address], [address] . tel:[phone] OFFICE/OUTPA TIENT VISIT NEW [facility], [address] [place] [address] [address], [id number], [place] tel:[phone] C [facility] Ostium secundum type atrial septal defectFatigue / Malaise 2-201 3 Maral Shah. [address] [place] [address], [address], [id number], [place]. tel:[phone] Referring Provider: Alyssa Moyer, [address] [place] [address] [address], [address] . tel:[phone] [facility], [address] [place] [address] [address], [id number], [place] tel:[phone] C [facility] MAGDIEL Murmur 8-201 3 Maral Shah. [address] [place] [address], [address], [id number], [place]. tel:[phone] Referring Provider: Jay Brasher, [address] [place] [address] [address], [place], [address]. tel:[phone] Family History Family Member Type Diagnosis Age At Onset Father Problem (finding) Prostate Cancer (Cause Of ) Mother Problem (finding) alzheimer's disease (Ca use Of ) Father Problem (finding) hypertension Father Problem (finding) Mother Problem (finding) Father Problem (finding) High Blood Pressure Sister Problem (finding) High Blood Pressure Sister Problem (finding) hypertension Payers Payer name Insurance type Covered republican ID Authoriza tion(s) [employer] PPO Other State [place] F[place] BL [id number] Social History Type Description Quantity Date Captured [...] Future Order: Lab Order CBC With Differential/Platelet ([id number]), Sent on: Sent Future Order: Lab Order Basic Me tabolic Panel (8) ([id number]), Sent on: Sent History Of Present Illness [...]
--- OUTSIDE RECORDS SUMMARY | 2024-05-17 09:01 | XMS_ITS | Data Portability ---
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 Plan of Treatment Reminders Order Date Submit Date Provider Last Modified By Organization Details Last Modified Time Details Appointments None recorded. Lab pap, LB + HPV - if HPV positive reflex to HPV subtyping 2021 [facility] (Pathology), [address] [place] [address], [address], 10:28:16 lipid panel, serum 2021 022 [facility], [address] [place] [address], [address], 12:29:16 CMP, serum or plasma 2021 022 [facility], [address] [place] [address], [address], 2 12:29:15 HbA1c (hemoglobin A1c), blood 2021 022 [facility], [address] [place] [address], [address], 2 11:34:40 TSH, serum or plasma 2021 022 [facility], [address] [place] [address], [address], 14:35:01 T4, free, serum 2020 022 [facility], [address] [facility], [place], [address], 12:47:12 Referral None recorded. Procedures None recorded. Surgeries None recorded. Imaging bone density 2021 022 [facility] (Imaging), [address], [place], [address], 20:00:32 MAMMO, screening, tomosynthes is, bilateral 2021 022 nviens Not available 14:23:25 Medication Orders alendronate 70 mg tablet 2020 021 [facility]/Pharmacy #[id number], [address] [place], [address], 13:04:28 levothyroxi ne 112 mcg tablet 2020 021 [facility]/Pharmacy #[id number], [address] [place], [address], 16:56:08 Patient Targets Encounter Date Encounter Id Patient Goals Patient Target Last Modified By Organization Details Last Modified Time goal includesworking in gardernsticking to weekend ruleadn eating more salads. egraef Not available 09/13/2020 16:00:21 Patient Instructions Encounter Date Encounter Id Patient Instructions Last Modified By Organization Details Last Modified Time 07/25/2021 [id number] advance directives: care instructions egraef Not available [...] furth er confi rmati on Not Available [address], [address], 09/02/2020 11:36:46 08/31/1909/02/2020 HbA1c (hemo globi n A1c), blood estimated average glucose 128.4 mg/dL Not Available [address], [address], 09/02/2020 11:36:46 08/31/1909/02/2020 TSH, serum or plasm a TSH 0.26 uIU/m L 0.50-6 .00 low The Ameri can Colle ge of Endoc rinol ogy and Ameri can Thyro id Assoc iatio n recom mend goal TSH value s betwe en 0.4-4 .0 mIU/m L. Not Available [address], [address], 09/02/2020 13:43:52 08/31/1909/02/2020 BMP, serum or plasm a glucose 85 mg/dL 70-100 Not Available [address], [address], 09/02/2020 15:23:46 08/31/1909/02/2020 BMP, serum or plasm a BUN 22 mg/dL 7-18 high Not Available [address], [address], 09/02/2020 15:23:46 08/31/1909/02/2020 BMP, serum or plasm a creatinine 0.8 mg/dL 0.8-1. 3 Not Available [address], [address], 09/02/2020 15:23:46 08/31/19 21 09/02/2020 BMP, serum or plasm a B/C 27.5 ratio Not Available [address], [address], 09/02/2020 15:23:46 08/31/19 21 09/02/2020 BMP, serum or plasm a GFR -non 80.9 mL/mi n Recom mannie d GFR by the Natio nal Kidne y Found ation >60 mL/mi n/1.7 3m2 - Enriqueta l <60 mL/mi n/1.7 3m2 - Chron ic Kidne y Disea se <15 mL/mi n/1.7 3m2 - Kidne y Failu re Not Available [address], [address], 09/02/2020 15:23:46 08/31/19 21 09/02/2020 BMP, serum or plasm a GFR - if 93.0 mL/mi n For Afric an Ameri can patie nts: Resul ts Multi plied by 1.21 Not Available [address], [address], 09/02/2020 15:23:46 08/31/19 21 09/02/2020 BMP, serum or plasm a sodium 142 mmol/ L 136-14 5 Not Available [address], [address], 09/02/2020 15:23:46 08/31/19 21 09/02/2020 BMP, serum or plasm a potassium 4.2 mmol/ L 3.5-5. 1 Not Available [address], [address], 09/02/2020 15:23:46 08/31/19 21 09/02/2020 BMP, serum or plasm a chloride 104 mmol/ L 96-107 Not Available [address], [address], 09/02/2020 15:23:46 08/31/19 21 09/02/2020 BMP, serum or plasm a anion gap 13.0 5.0-15 .0 Not Available [address], [address], 09/02/2020 15:23:46 08/31/19 21 09/02/2020 BMP, serum or plasm a CO2 25 mmol/ L 21-32 Not Available [address], [address], 09/02/2020 15:23:46 08/31/19 21 09/02/2020 BMP, serum or plasm a calcium 8.7 mg/dL 8.5-10 .3 Not Available [address], [address], 09/02/2020 15:23:46 11/14/19 21 11/14/2020 TSH TSH 0.26 uIU/m L 0.50-6 .00 low The Ameri can Colle ge of Endoc rinol ogy and Ameri can Thyro id Assoc iatio n recom mend goal TSH value s betwe en 0.4-4 .0 mIU/m L. Not Available [address], [address], 11/14/2020 12:09:51 04/16/19 22 04/16/2021 FREE T4 free T4 1.49 NG/dL 0.75-1 .54 Not Available [address], [address], 04/16/2021 12:47:12 05/02/19 22 05/05/2021 HGB A1C [...] furth er confi rmati on Not Available [address], [address], 05/05/2021 11:34:40 05/02/19 22 05/05/2021 HGB A1C estimated average glucose 122.6 mg/dL Not Available [address], [address], 05/05/2021 11:34:40 05/02/19 22 05/05/2021 COMP. METAB OLIC PANEL glucose 97 mg/dL 70-100 Not Available [address], [address], 05/05/2021 12:29:15 05/02/19 22 05/05/2021 COMP. METAB OLIC PANEL BUN 13 mg/dL 7-18 Not Available [address], [address], 05/05/2021 12:29:15 05/02/19 22 05/05/2021 COMP. METAB OLIC PANEL creatinine 0.9 mg/dL 0.8-1. 3 Not Available [address], [address], 05/05/2021 12:29:15 05/02/19 22 05/05/2021 COMP. METAB OLIC PANEL B/C 14.4 ratio Not Available [address], [address], 05/05/2021 12:29:15 05/02/19 22 05/05/2021 COMP. METAB [...] be used in pregn sebastián. Not Available [address], [address], 05/05/2021 12:29:15 05/02/19 22 05/05/2021 COMP. METAB OLIC PANEL sodium 139 mmol/ L 136-14 5 Not Available [address], [address], 05/05/2021 12:29:15 05/02/19 22 05/05/2021 COMP. METAB OLIC PANEL potassium 4.6 mmol/ L 3.5-5. 1 Not Available [address], [address], 05/05/2021 12:29:15 05/02/19 22 05/05/2021 COMP. METAB OLIC PANEL chloride 103 mmol/ L 96-107 Not Available [address], [address], 05/05/2021 12:29:15 05/02/19 22 05/05/2021 COMP. METAB OLIC PANEL anion gap 12.9 5.0-15 .0 Not Available [address], [address], 05/05/2021 12:29:15 05/02/19 22 05/05/2021 COMP. METAB OLIC PANEL CO2 23 mmol/ L 21-32 Not Available [address], [address], 05/05/2021 12:29:15 05/02/19 22 05/05/2021 COMP. METAB OLIC PANEL calcium 9.1 mg/dL 8.5-10 .3 Not Available [address], [address], 05/05/2021 12:29:15 05/02/19 22 05/05/2021 COMP. METAB OLIC PANEL total protein 7.5 g/dL 6.4-8. 2 Not Available [address], [address], 05/05/2021 12:29:15 05/02/19 22 05/05/2021 COMP. METAB OLIC PANEL albumin 4.2 g/dL 3.4-5. 0 Not Available [address], [address], 05/05/2021 12:29:15 05/02/19 22 05/05/2021 COMP. METAB OLIC PANEL globulin 3.3 g/dL Not Available [address], [address], 05/05/2021 12:29:15 05/02/19 22 05/05/2021 COMP. METAB OLIC PANEL A/G 1.3 ratio 0.8-2. 0 Not Available [address], [address], 05/05/2021 12:29:15 05/02/19 22 05/05/2021 COMP. METAB OLIC PANEL total bilirubin 1.00 mg/dL 0.00-1 .00 Not Available [address], [address], 05/05/2021 12:29:15 05/02/19 22 05/05/2021 COMP. METAB OLIC PANEL AST 26 U/L 0-37 Not Available [address], [address], 05/05/2021 12:29:15 05/02/19 22 05/05/2021 COMP. METAB OLIC PANEL ALT 31 U/L 6-63 Not Available [address], [address], 05/05/2021 12:29:15 05/02/19 22 05/05/2021 COMP. METAB OLIC PANEL alk. phos. 61 U/L 50-136 Not Available [address], [address], 05/05/2021 12:29:15 05/02/19 22 05/05/2021 LIPID PANEL cholesterol 205 mg/dL <200 mg/dl Mi able 200-2 39 mg/dl Borde rline High >240 mg/dl High Not Available [address], [address], 05/05/2021 12:29:16 05/02/19 22 05/05/2021 LIPID PANEL triglyceride s 61 mg/dL <150 mg/dL Enriqueta l 150-1 99 mg/dL Borde rline High 200-4 99 mg/dL High >500 mg/dL Very High Not Available [address], [address], 05/05/2021 12:29:16 05/02/19 22 05/05/2021 LIPID PANEL direct HDL 68 mg/dL <40 mg/dl - Major Risk for CHD >60 mg/dl - Negat gomez Risk for CHD Not Available [address], [address], 05/05/2021 12:29:16 05/02/19 22 05/05/2021 LDL - CALCU LATED LDL - calculated 124.8 RISK CATEG ORY LDL GOAL _ CHD or CHD Risk Equiv alent s <100 mg/dl (10-y ear risk >20%) 2+ Risk Facto rs <130 mg/dl (10-y ear risk <= 20%) 0-1 Risk Facto r? <160 mg/dl ? Almos t all peopl e with 0-1 risk facto r have a 10 year risk <10%, thus 10 year risk asses ment in peopl e with 0-1 risk facto r is not meryl simsy. Not Available [address], [address], 05/05/2021 12:29:17 05/02/19 22 05/05/2021 TSH TSH 1.00 uIU/m L 0.50-6 .00 The Ameri can Colle ge of Endoc rinol ogy and Ameri can Thyro id Assoc iatio n recom mend goal TSH value s betwe en 0.4-4 .0 mIU/m L. Not Available [address], [address], 05/05/2021 14:35:01 07/26/19 22 08/01/2021 PAP SMEAR path report [facility] [address] [place] [address] Lab Direc tor: Meka jennings MD HUMAN RESOURCES TRAINING MANAGER Cytol ogy Repor t Acces vivi #: [...] 56, 58, 59, 66, 68) by Jacklyn santoro HR-HP V holli sis. Clini malika corre latio n is advis ed. This HPV test was perfo rmed at [facility], [address] [facility]. This test has been FDA appro too for SureP ath cervi malika cytol ogy speci mens. The accur acy and preci vivi of this test for all other speci men sourc es has been verif ied in the Cytop athol ogy Labor atory of the [facility] and has [...] wn Other Clini malika Condi tions : Scree josé manuel Pap SPECI MEN SOURC E A: PAP SMEAR (SURE PATH) CE Patie nt Name: MARGARITA RAMOS : [phone] (Age: 66) Sex: M 1 Insti tutio n: [facility] Locat ion: [facility] Date of Colle ction : 022 Date of Acces vivi: 2021 Repor yandy: 2021 10:26 Resul ts to: Ashley Banerjee BENEFITS PROCESSOR Not Available [facility] (Outpatient) [address] [place] [address], [address], 08/01/2021 10:28:16 08/04/19 22 05/05/2021 MAMMO , scree josé manuel, tomos ynthe sis, bilat eral No observ ation record ed. nviens Not Available 2021 14:23:19 02/05/20 22 01/22/2022 bone densi ty Dual-E nergy X-ray Absorp tiomet ry (DXA) scan perfor med on 2. Impres vivi: Based on BMD, diagno sis is consis tent with low bone mass. Treatm ent Recomm endati ons: ?Optim ize vitami n D, calciu m, and weight [...] This scan was perfor med using the [employer] Lunar Prodig y Primo [address] [facility] , [place] [id number] [place]. Read by: Meka de, MS, [facility] , CCD Yvon morales: Gilberto villanueva[address] (Imaging) [address] , [place], [address], 01/15/2023 10:10:18 03/03/20 24 03/03/2024 XR, chest , 2 view No observ ation record ed. [email or web address] 1 [facility] [address] [facility], [place], [address], 03/03/2024 19:05:36 Result Notes None recorded. Problems Name Problem SNOMED Code Status Onset Date Resolution Date Notes Provider Name and Address Organization Details Recorded Time Gastroesop hageal reflux disease 456920970 Active MODESTA Patel [address] [place], [place] [address], [address], [facility] 6 09:42:53 Hiatal hernia 67295841 Active EGD, 01/2014, ALIVIA PatelNATALIE [address] [place], [place] [address], [address], [facility] 6 09:23:02 Atrial septal defect 26180278 Active amplatzer septal occluder, 11/2013 MODESTA Patel [address] [place], [place] [address], [address], [facility] 6 09:42:53 Hypothyroi dism 17508643 Active [facility] [address] [place], [place] [address], [address], [facility] 6 09:42:53 Major depressive disorder 706398073 Active 2019 MODESTA Patel [address] [place], [place] [address], [address], [facility] 0 12:19:07 Osteoporos is 08067958 Active 2019 Ashley Banerjee, DEPUTY CLERK OF COURT-BC [address] [place], [address], [facility] 23:30:25 Problem Notes None recorded. Procedures Surgical History Date Name Laterality Status Provider Name and Address Organization Details Recorded Time 07/26/19 22 Medicare Wellness Visit completed Jayleen Ring MA [facility] 07/25/2021 16:35:31 07/26/19 22 Alcohol use screening completed Jayleen Ring MA [facility] 07/25/2021 16:35:31 07/26/19 22 Cardiovascular disease risk reduction counseling completed Jayleen Ring MA [facility] 07/25/2021 16:35:31 05/30/19 21 [address]: Therapeutic Exercise completed Jess Coates, PT [address] [place], [address], [facility] 05/29/2020 13:02:14 05/30/19 21 Treatment and Advice completed Jess Coates, PT [address] [place], [address], [facility] 05/29/2020 12:36:35 05/15/19 21 [address]: Therapeutic Exercise completed Jess Coates, PT [address] [place], [address], [facility] 05/15/2020 16:04:14 05/15/19 21 Treatment and Advice completed Jess Coates, PT [address] [place], [address], [facility] 05/15/2020 16:23:28 05/03/19 21 [address]757: Therapeutic Exercise completed Jess Coates, PT [address] [place], [address], [facility] 05/03/2020 15:01:44 05/03/19 21 Treatment and Advice completed Jess Coates, PT [address] [place], [address], [facility] 05/03/2020 15:01:15 04/16/19 21 Physical Activity Counselling completed Jess Coates, PT [address] [place], [address], [facility] 04/16/2020 18:33:29 04/16/19 21 [address]: PT Eval Low Complexity completed Jess Coates, PT [address] [place], [address], [facility] 04/16/2020 18:33:23 04/16/19 21 Treatment and Advice completed Jess Coates, PT [address] [place], [address], [facility] 04/16/2020 18:31:38 10/06/19 20 prevention-cardiov ascular risk reduction counseling completed Ani Farooq [facility] 10/06/2019 11:24:39 10/06/19 20 prevention-annual alcohol misuse screening completed Ani Farooq [facility] 10/06/2019 11:24:39 02/29/20 19 POC Urinalysis Testing completed Lisa Orozco [facility] 02/28/2019 12:08:37 11/21/19 14 Other (specify) completed Ashley Banerjee, DEPUTY CLERK OF COURT-BC [address] [place], [address], [facility] 08/28/2015 09:20:04 Imaging Results Imaging Date Name Status LastModified by Organiz ation Details LastModified Time 05/05/2021 MAMMO, screening, tomosynthesis, bilateral completed nviens Information not available 08/12/2021 14:23:19 01/22/2022 bone density completed [address] (Imaging) [address], [place], [address], 01/15/2023 10:10:18 03/03/2024 XR, chest, [address], [address], 03/03/2024 19:05:36 Procedure Notes None recorded. Medical Equipment None Reported. Allergies Allergen ID Allergen Name Allergen Category Reaction Reaction Severity Criticality Documentation Date Start Date Code Code System Note Provider Name and Address Organization Details Recorded Time 218012 Substance with sulfonami de structure and antibacte rial mechanism of action (substanc e) medicatio n vomiting severe Not available 08/28/2015 46476 8003 [facility]ED [facility] 08:53:24 921007 codeine medicatio n other severe Not available 08/28/2015 2670 RxNorm Sees visio ns that are not there [facility] 6 08:53:24 380543 Phenergan medicatio n vomiting severe Not available 08/28/2015 12441 8 RxNorm [facility] 6 08:53:24 Medications Name Sig Start Date [...] Updated DateTime 1 157.48 cm 28.2 kg/m2 80381.6 2 g 96 % 96 % 96 /min 128 mm[Hg] 64 mm[Hg] Ani Farooq MA [facility] 1 15:51:55 Date Recorded Body height Body mass index (BMI) Body weight Heart rate Systolic blood pressure Diastolic blood pressure Provider Name and Address Organization Details Last Updated DateTime 1 157.48 cm 28.1 kg/m2 73658.4 3 g 60 /min 126 mm[Hg] 62 mm[Hg] Ani Farooq MA [facility] 1 16:02:39 Date Recorded Body height Body mass index (BMI) Body weight Heart rate Systolic blood pressure Diastolic blood pressure Provider Name and Address Organization Details Last Updated DateTime 2 157.48 cm 27.8 kg/m2 33686.0 4 g 80 /min 134 mm[Hg] 68 mm[Hg] Ani Farooq MA [facility] 2 15:07:16 Date Recorded Body height Body mass index (BMI) Body weight Oxygen saturation Oxygen saturation in Arterial blood by Pulse oximetry Heart rate Systolic blood pressure Diastolic blood pressure Provider Name and Address Organization Details Last Updated DateTime 2 157.48 cm 27.8 kg/m2 92758.0 4 g 94 % 94 % 94 /min 138 mm[Hg] 60 mm[Hg] Jayleen Ring MA [facility] 2 16:33:54 Date Recorded Body height Body mass index (BMI) Body weight Heart rate Systolic blood pressure Diastolic blood pressure Provider Name and Address Organization Details Last Updated DateTime 2 157.48 cm 27.3 kg/m2 81014.0 6 g 68 /min 118 mm[Hg] 68 mm[Hg] Ani Farooq MA [facility] 2 15:43:01 Social History Question Answer Notes LastModified by Organizat ion Details LastModified Time Tobacco Smoking Status [facility] 08/[facility]2018 15:01:19 What Is Your Level Of Alcohol Consumption? Occasional Glass Of Wine On Weekends At Dinner Information not available 08/28/2015 Do You Wear A Helmet When Biking? No N/a [email or web address] Information not available 07/25/2021 What Is Your Level Of Caffeine Consumption? Heavy At Least 3 Cups A Day Information not available 08/28/2015 Are You Currently Employed? Yes [email or web address] Information not available 07/25/2021 What Type Of Diet Are You Following? REGULAR Information not available 08/28/2015 Which Illicit Or Recreational Drugs Have You Used? None [email or web address] Information not available 08/28/2015 Do You Or Have You Ever Used E-cigarettes Or Vape? Never Used Electronic Cigarettes [email or web address] Information not available 02/28/2019 What Is The Highest Grade Or Level Of School You Have Completed Or The Highest Degree You Have Received? 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 No [email or web address] Information not available 07/25/2021 When Did You Quit Smoking? 16+yearssince lastcigarette 40 Yrs Ago When In College Information not available 08/28/2015 Are There Any Guns Present In Your Home? No Information not available 08/28/2015 Do You Use Insect Repellent Routinely? Yes [email or web address] Information not available 07/25/2021 Live Alone Or With Others? With Others Daughter Information not available 08/28/2015 Patient Has Health [...] 08/28/2015 What Is Your Relationship Status? Single [email or web address] Information not available 07/25/2021 Do You Use Your Seat Belt Or Car Seat Routinely? Yes [email or web address] Information not available 07/25/2021 Seat Belts Used Routinely Yes Information not available 08/28/2015 Smoke Alarm In Home Yes Information not available 08/28/2015 Do You Have Smoke And Carbon Monoxide Detectors In Your Home? Yes [email or web address] Information not available 07/25/2021 Are You Passively Exposed To Smoke? No Information not available 07/25/2021 Do You Or [...] Time What is your exercise level? Occasional [email or web address] Information not available 07/25/2021 Mental Status None [...] 0.5 mL 08/25/2020 completed ALEM Mendoza [place] - [facility] 09/13/2020 15:48:21 COVID-19 vaccine, vector-nr, rS-Ad26, PF, 0.5 mL 01/25/2021 completed ALEM Mendoza [facility] 05/02/2021 15:00:37 Past Encounters Encounter ID Performer Location Encounter Start Date Encounter Closed Date Diagnosis/Indication Diagnosis SNOMED-CT Code Diagnosis ICD10 Code Diagnosis Note [id number] MODESTA Patel, [facility], [address]ICE [address] [place] [address] 08/28/2015 08:11:05 08/28/2015 09:54:45 Adult health examination 575708818 Z00.00 see Risk Assessment and Lifestyle Change Counseling section above Counseling 238074928 Z71 .9 Screening mammography 24 912733 Z12.31 Hypothyroidism 34925965 E03.9 stable on current regimen Atrial septal defect 701 [address] Q21.1 repair 2013, interested in establishi ng with cardiology locally. weight loss efforts ongoing Panic 71516891 F41.0 historical ly benefited from low dose citalopram , will resume as pt reports symptoms have reoccured. Gastroesop hageal reflux disease 381600641 K21.9 stable on current regimen. historical ly benefits from nexium over other PPIs. [id number] MODESTA Patel, [facility], [address] [place] [address] 10/09/2015 08:36:27 10/10/2015 09:06:12 Hypothyroidism 79660150 E03.9 stable on current regimen, will check tsh Depressive disorder 3548 9007 F32.9 improvemen t in mood in citalopram . [id number] MODESTA Patel, [facility], [address] [place] [address] 02/28/2018 14:35:23 02/28/2018 15:17:11 Hypothyroidism 09818768 E03.9 lab work was completed in at 125 mcg Depressive disorder 3543 9007 F32.9 improvemen t in mood in citalopram . [id number] MODESTA Patel, [facility], [address] [place] [address] 07/19/2018 11:17:41 07/20/2018 09:47:10 Pain of left wrist 8213940213 48960 M25.532 traumalimi yandy rom,concer josé manuel for possible fracturegi radha time frame (4 months from injury) will refer to occupation al therapy and consider orthopedic s if no improvemen t. [id number] MODESTA Patel , [facility], [address] [place] [address] 08/29/2018 14:52:36 08/29/2018 15:29:34 Hypothyroidism 71054429 E03.9 lab work was completed in at 125 mcg Fracture a t wrist and/or hand level 264588405 S62.90XA declined orthopedic evaluation improved range of motion [id number] MODESTA Patel, [facility], [address] [place] [address] 01/09/2019 11:50:17 01/09/2019 13:26:55 Hypothyroidism 40347561 E03.9 stable , due for labsreport s improved energy and weight loss since at higher dose Screening for disorder 409644535 Z11.59 Screening mammography 24 592931 Z12.31 routine screening ordered [id number] MODESTA Patel , [facility], [address] [place] [address] 02/28/2019 11:47:53 02/28/2019 14:59:09 Urinary tract infectious disease 91325408 N39.0 Patient instructed to push fluids, to follow up for persistent or worsening symptoms or fever or back pain. ua reassuring but pt prefers to treat based on symptomscu lture pending Hypothyroidism 37905089 E03.9 stable ,reports improved energy and weight loss since at higher doserenew at 137. [id number] MODESTA Patel , [facility], [address] [place] [address] 10/06/2019 11:24:18 10/09/2019 09:07:16 Adult health examination 904330052 Z00.00 see Risk Assessment and Lifestyle Change Counseling section above, pt reports she is UTD on pap , will repeat next year. no hx of abnormalma mmogram completed 2018 due 1report s UTD on colonoscop y reports normal Depression screening 171 827202 Z13.89 depression screening tool administer ed, entered into emr, scored and discussed, time greater than 7.5 minutes Screening for alcohol abuse 261916323 Z13.39 Counseling 440786623 Z71 .89 Hypothyroidism 47915917 E03.9 stable ,reports improved energy and weight loss since at higher doserenew at 137. Closed fra cture of left wrist 7218931830 4748836 S62.92XA hx of, possible pathologic fracture, reviewed calcium and vitamin D. willrefer for bone density Atrial septal defect 701 [address] Q21.1 repair 2013, interested in establishi ng with cardiology locally. weight loss efforts ongoing Gastroesop hageal reflux disease [id number] K21.9 stable on current regimen. historical ly benefits from nexium over other PPIs. Major depr essive disorder 252341999 F32.9 stable on 10 mg of citalopram [id number] Ashley Banerjee, DEPUTY CLERK OF COURT-BC , [facility], [address] [place] [address] 04/05/2020 11:06:48 04/08/2020 12:47:36 Osteoporosis 72047774 M81.0 reviewed s/e including stomach symptoms and jaw necrosis pt verbalized understand ing Hypothyroidism 52099729 E03.9 stable ,reports improved energy and weight loss since at higher doserenew at 137. Obesity 962314775 E66.9 stable monitor Pain in right knee 77158 34135 78740 M25.561 trial physical therapy [id number] Jess jennings, PT Physical Therapy, [address] [address] 04/16/2020 17:05:01 04/18/2020 09:57:55 Pain in left knee [id number] 66036 M25.504 [id number] Jess jennings, PT Physical Therapy, [facility] [address] [place] [address] 05/03/2020 14:37:27 05/03/2020 15:04:43 Pain in left knee 7157918732 97673 M25.079 [id number] Jess jennings, PT Physical Therapy, [address] [address] 05/15/2020 16:03:03 05/15/2020 17:16:29 Pain in left knee [id number] 26741 M25.655 [id number] Jess jennings, PT Physical Therapy, [facility] [address] [place] [address] 05/29/2020 12:35:42 05/29/2020 13:11:42 Pain in left knee [id number] 16722 M25.058 [id number] MODESTA Patel , [facility], [address] [place] [address] 09/13/2020 15:29:05 09/13/2020 16:10:42 Hypothyroidism 64591498 E03.9 taking 125 but has lost sig weight loss, recents tsh over corrected suspect secondary to wt loss will hold wednesday doserepeat in 8 weekspt will report any thyroid symptoms Overweight 959530692 E66 .3 [id number] MODESTA Patel, [facility], [address] [place] [address] 12/06/2020 15:36:07 12/06/2020 17:04:23 Hypothyroidism 62599165 E03.9 taking 125 but has lost sig weight loss, recents tsh over corrected suspect secondary to wt loss will hold wednesday doserepeat in 8 weekspt will report any thyroid symptoms Osteoporosis 19640937 M8 1.0 reviewed s/e including stomach symptoms and jaw necrosis pt verbalized understand ing [id number] MODESTA Patel , [facility], [address] [place] [address] 05/02/2021 14:51:11 05/05/2021 10:07:45 Mixed hyperlipidemia 625442758 E78.2 trend labs Hypothyroidism 64403719 E03.9 taking 125 but has lost sig weight loss, recents tsh over corrected suspect secondary to wt loss will hold wednesday doserepeat in 8 weekspt will report any thyroid symptoms Screening mammography 24 947611 Z12.31 routine screening ordered [id number] MODESTA Patel, [facility], [address] [place] [address] 07/25/2021 16:10:45 09/24/2021 10:12:53 Screening for malignant neoplasm of colon 620839305 Z12.11 reports utd on mammogram and colonoscop y, outside reports pending Hypothyroidism 41670790 E03.9 stable iwth 112 mcg 6 days per week Adult heal th examination 392549005 Z00.00 see Risk Assessment and Lifestyle Change Counseling section above, reports UTD on colonoscop y and mammogram reports normal, anticipato ry guidance reviewed Counseling 920969725 Z71 .9 including cardiovasc ular risk reduction counseling Depression screening 171 576143 Z13.31 depression screening tool administer ed, entered into emr, scored and discussed, time greater than 7.5 minutes Screening for alcohol abuse 426180201 Z13.39 Screening for malignant neoplasm of cervix 877546017 Z12.4 Major depr essive disorder 796592790 F32.9 stable on 10 mg of citalopram Osteoporosis 36444533 M8 1.0 reviewed s/e including stomach symptoms and jaw necrosis pt verbalized understand ingtolerat ing alendronat e [id number] Ashley Banerjee, DEPUTY CLERK OF COURT-BC , [facility], [address] [place] [address] 01/30/2022 15:09:12 01/30/2022 16:04:02 Vaccination not done 8864134956 9108 Z28.29 Patient declined the flu and pneumonia vaccines at this time. Hypothyroidism 07992313 E03.9 stable iwth 112 mcg 6 days per week Osteoporosis 42569384 M8 1.0 tolerating alendronat e, repeat bone density results pending, if worsened referral to endocrine Health Concerns Section Related Observation LastModified by Organization Detai ls LastModified Time None Recorded Concern Status LastModified by Organization Details LastModified Time None Recorded Advance Directives Directive None Recorded Payers Encounter Date Sequence Insurance Name Policy Number Policy Maher Covered Member ID Maher Member ID Guarantor Name 09/13/2020 1 [facility] [employer] [place] [employer] (HMO) [id number] Margarita Lundberg Belyea [id number] 1 Margarita Belyea 12/06/2020 1 [facility] [employer] [place] [employer] (HMO) [id number] Margarita L Belyea [id number] 1 Margarita Belyea 05/02/2021 1 [place] [employer] Margarita L Belyea [id number] 1 Margarita Belyea 07/25/2021 1 [place] Margarita L Belyea [id number] 1 Margarita Shafer 01/30/2022 1 [place] [facility] Margarita Shafer [id number] 1 Margarita Shafer Notes Date Note Type Note Provider Name [...] septal occluder placed 11/2013 cardiology- follow up 2017. , will follow up hx of hypothyroidism, stable, GERD, managed with PPI last pap wnl. colonoscopy 2013. normal mammogram- 01/2019 sometimes feels like she forgets things, but things she does not put on calander. mental health, new job with [employer] is going well but slightly stressful taking citalopram 10 mg mood stable Ashley Banerjee, [address], [address], [facility] 09/15/2020 15:21:41 12/06/2020 text/html Pt here today [...] shot symptoms was bone pain.for a day ALEXX Patel[address], [address], [facility] 12/22/2020 13:04:38 05/02/2021 text/html doing well,no fatigueno palpitationsmood- is good continue vitamin d and calcium daily exercising regularly, endorse healthy nutrition, not dietingno complaints Ashley Banerjee [address], [address], [facility] 05/04/2021 13:00:27 07/25/2021 text/html Physical Exam/FemaleReported bypatient.PHAPatient is here for a Wellness Visit. She describes her health status as good. Patient's health is better than last year.Notes: 10/06/2019pt [facility], history of ASD, repaired. septal occluder placed 11/2013cardiology- follow up 2017. , will follow up hx of hypothyroidism, stable, GERD, managed with PPI last pap wnl.colonoscopy 2013. normalmammogram- 01/2019 sometimes feels like she forgets things, but things she does not put on calander. mental health, new job with [employer] is going well but slightly stressfull taking [...] mammogram daughter- moved out with [place] in [place] feeling well handling two cats and two ferrets nutrition and exercise,walking on sundays coivd got boosterthyroid stable Ashley Banerjee, [address], [address], [facility] 07/27/2021 12:07:10 01/30/2022 text/html pt presents for [...] mammogram daughter- moved out with [place] in [place] feeling well handling two cats and two ferrets nutrition and exercise,walking on sundays covid got boosterthyroid stable Ashley Banerjee, [facility] [address] [place], [address], [facility] 01/31/2022 12:07:57 OBGyn Episode No OBEpisode recorded.
--- OUTSIDE RECORDS SUMMARY | 2024-05-17 09:01 | XMS_ITS | Clinical Summary ---
Author Organization [facility] Address [address] [place] [address] Phone [email or web address] Care Team Providers Care Production Operations Manager Name Role Phone Unavailable Primary Care Provider Unavailabl e Allergies Active Allergy Reactions Criticality Noted Date Comments Cephalexin GI intolerance 06/30/2017 vomitting Codeine Other (see comments) 06/30/2017 Hallucinations Promethazine GI intolerance 06/30/2017 vomitting Sulfa Antibiotics 06/30/2017 Massive headache Medications calcium citrate-vitamin D 250-100 MG-UNIT per tablet Take 1 tablet by mouth 2 (two) times a day. Active cyanocobalamin (VITAMIN B-12) 1000 MCG tablet Take 1,000 mcg by mouth 1 (one) time each day. Active levothyroxine (SYNTHROID, LEVOTHROID) 125 MCG tabletIndications:A cquired hypothyroidism Take 1 tablet (125 mcg total) by mouth 1 (one) time each day. 90 tablet 2 8 Active meclizine (ANTIVERT) 25 MG tabletIndications:V ertigo TAKE 1 TABLET BY MOUTH DAILY 30 tablet 8 Active citalopram (CeleXA) 10 MG tabletIndications:A nxiety state TAKE 1 TABLET(10 MG) BY MOUTH 1 TIME EACH DAY 90 tablet 8 Active Active Problems Problem Noted Date Diagnosed Date Dietary counseling and surveillance 06/30/2017 Status post atrial septal defect repair 07/01/19 18 Overview (06/30/2017): Amplatzer septal occlusion devise. Vertigo 01/04/2017 Overview (05/03/2017): Hypothyroidism Overview (05/03/2017): Anxiety state Overview (05/03/2017): Family History Medical History Relation Name Comments Prostate cancer Father Diabetes Maternal Grandfather Alzheimer's disease Mother Relation Name Status Comments Father Maternal Grandfather Mother Social History Tobacco Use Types Packs/Day Years Used Date Smoking Tobacco: Never Smokeless Tobacco: Never Alcohol Use Standard Drinks/Week Comments Yes 1 (1 standard drink = 0.6 oz pur e alcohol) 1-2/week Stress Answer Date Recorded Stress in your Life Not on file 10/24/2023 Dealing with Stress Not on file 10/24/2023 Comments No Sex and Gender Information Value Date Recorded Sex Assigned at Not on file 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 Gender Identity Not on file Sexual Orientation Not on file Last Filed Vital Signs Vital Sign Reading Time Taken Comments Blood Pressure 118/78 06/30/2017 9:22 AM EDT Pulse 65 06/30/2017 9:22 AM EDT Temperature 36.5 ??C (97.7 ??F) 06/30/2017 9:22 AM ED T Respiratory Rate 16 06/30/2017 9:22 AM EDT Oxygen Saturation 98% 06/30/2017 9:22 AM EDT Inhaled Oxygen Concentration - - Weight 69.1 kg (152 lb 6.4 oz) 11/16/2017 8:34 A M EDT Height 157.5 cm (5' 2 ) 11/16/2017 11:40 AM EDT Body Mass Index 27.87 11/16/2017 8:34 AM EDT Plan of Treatment Health Maintenance Due Date Last Done Comments Dental Cleaning/Exam 1956 Tetanus (Tdap or Td) Immunization 1967 Tetanus Diphtheria and Pertu ssis Immunization (1 - Tdap) 1975 Colorectal Cancer Screening 1986 Osteoporosis screening DEXA 2006 Pneumococcal: 65+ Years (1 o f 1 - PCV) 2006 03/30/2010 Zoster Immunization (1 of 2) 2006 Covid-19 Immunization (1 - 2 024-25 season) 2023 Influenza Immunization (#1) 2023 HIB Immunization Aged Out No longer e ligible based on patient's age to complete this topic HPV Immunization Aged Out No longer e ligible based on patient's age to complete this topic Hepatitis A Immunization Aged Out No longer eligible based on patient's age to complete this topic Hepatitis B Immunization Aged Out No longer eligible based on patient's age to complete this topic Polio Immunization Aged Out No longer eligible based on patient's age to complete this topic Goals Goal Patient Goal Type Associated Problems Recent Progress Patient-Stated? Author Focus on food variety and remember to not skip meals when working from home. General Improving( 8:55 AM CDT) Yes April Soliman RD Note: Focus on variety in foods, different food combinations and measure everything to prevent overeating. Specifics: cinnamon in coffee, baked apple/pear chips with cinnamon, watch portions of avocado and nuts (high in calories, perhaps choose 1 at a time for meals), frozen vanilla yogurt and berries as a dessert treat. Continue to speak with EAP/BeWell assistant softball coach to manage life's stressors and to learn non-food coping mechanisms. General On track( 8:43 AM CDT) Yes April Soliman RD Investigate fitbit (tracking activity/be well $15/month). General Yes April Soliman RD Focus on eating less at mealtimes/snacks (measuring, using healthy eating plate). General On track( 8:38 AM CDT) Yes April Soliman RD Recommit to exercise routine (aquajogging/tread mill walking) 2-3x/week. General On track( 8:37 AM CDT) Yes April Soliman RD Note: Will add 1 more time/week.
== END 2024-05-17 09:40 | disposition home or self-care (01) ==
PROVIDERS: PCP Internal Medicine; Visit Provider Internal Medicine
DX: Z00.00 Encounter for general adult medical examination without abnormal findings (principal); E03.9 Hypothyroidism, unspecified; D64.9 Anemia, unspecified; N20.0 Calculus of kidney; E78.00 Pure hypercholesterolemia, unspecified; R79.89 Other specified abnormal findings of blood chemistry; M85.80 Other specified disorders of bone density and structure, unspecified site; Z12.11 Encounter for screening for malignant neoplasm of colon

== ENCOUNTER 2024-11-14 15:09 | Outpatient (AMB) | payer MEDICARE, SELFPAY ==
--- NOTE | 2024-11-14 15:18 | A.OFFPC_ITS ---
Vital Signs 11/14/24 15:19 Height 5 ft 2 in Weight 130 lb 6 oz BMI 23.8 BP 124/60 Blood Pressure Location Lt brachial Position Sitting Pulse 69 Pulse Source Pulse Oximeter Temp 97.1 F Temp Source Temporal Artery Scan Pulse Oximetry (%) 96 Oxygen Delivery Method Room Air Intake Visit Reasons: hypothyroid Intake Note: Patient is here to follow up on Hypothyroid. Concrete Bucket Loader Required: No Manager Council: Present Accompanied by: Daughter Allergies Sulfa (Sulfonamide Antibiotics) Allergy (Intermediate, Verified 11/14/24 15:19) Vomiting Medication List - Last Reconciled 11/14/24 by eXnia Hogan MD ascorbic acid (vitamin C) mg PO cholecalciferol (vitamin D3) 25 mcg PO DAILY coenzyme Q10 (H2Q CoQ10) mg PO ferrous sulfate (Feosol) 325 mg PO DAILY levothyroxine 112 mcg PO DAILY magnesium oxide 500 mg PO DAILY mecobalamin (vitamin B12) mcg PO potassium gluconate 550 mg PO DAILY Tobacco use date assessed: 11/14/24 Fall risk assessment: No Falls in past year Last assessed Fall Risk: 11/14/24 Dental Screening Dental Screen Date: 05/17/24 [facility] Medical History (Updated 11/14/24 @ 16:13 by Xenia Hogan MD) Cervical cancer screening Breast cancer screening by mammogram Screening for osteoporosis Wrist fracture, left Surgical History History of Amplatzer atrial septal defect closure Hx of cholecystectomy H/O section Family History Mother Alzheimer disease Father Alzheimer disease Social History Household Members: Children Housing: House Alcohol intake: never Patient Tobacco Use Status: Former Tobacco user Tobacco use type: Cigarette Years Smoked: quit 2004 smoked 1 years 2 cigars a day e-Cigarette/Vaping Use: Never Used Second Hand Smoke Exposure: Yes service: No Current occupational status: retired Cognitive needs: No Hearing needs: No Vision needs: Yes Questionnaire Thrive Questionnaire Date Thrive assessed: 05/17/24 I am a: Patient What is your living situation today?: I have a steady place to live Within the past 12 months, did the food you bought not last and you didn't have the money to get more?: Never true Within the past 12 months, did you worry whether your food would run out before you got money to buy more?: Never true Do you have trouble paying for medicines?: No Do you have trouble getting transportation to medical appointments?: No Do you have trouble paying your heating and electricity bill?: No Do you have trouble taking care of your child, family member or friend?: No Do you have trouble with day-to-day activities such as bathing, preparing meals, shopping, managing finances, etc.?: No Are you currently unemployed and looking for a job?: No Are you interested in more education?: No Please select the resources that you would like help with: None Currently or been in a relationship where the following occur: No concerns reported THRIVE Score: 0 JIA-7 AMB Questionnaire JIA-7 Date JIA - 7 assessed: 05/17/24 Source: Developed by Drs. Jesse Portillo, Lisa Chavez, Steven Gregg and colleagues, with an educational janice from [employer]. Physical exam (Primary Care) Vital Signs: Last Vital Signs Temp 97.1 F 11/14/24 15:19 Pulse 69 11/14/24 15:19 BP 124/60 11/14/24 15:19 Pulse Ox 96 11/14/24 15:19 Oxygen Delivery Method Room Air 11/14/24 15:19 BMI result Body Mass Index 23.8 Tobacco/Smoking Status: Tobacco use Status Tobacco use date assessed 11/14/24 11/14/24 15:24 Patient Tobacco Use Status Former Tobacco user 11/14/24 15:24 Tobacco use type Cigarette 11/14/24 15:24 e-Cigarette/Vaping Use Never Used 11/14/24 15:24 Thrive Assessment: Date of Thrive Assessment Date Thrive assessed 05/17/24 11/14/24 15:24 Currently or been in a relationship where the following occur: No concerns reported Const General: alert; No acute distress Eyes Conjunctivae: conjunctivae normal Resp Auscultation: clear to auscultation bilaterally Cardio Rate: regular rate Rhythm: regular rhythm GI Inspection: Yes normal to inspection Extrem General: Yes normal to inspection and No edema Coding Level of Care Code Est Pt Level 4 (28933) Diagnoses Hypercholesterolemia E78.00 Acquired hypothyroidism E03.9 Hypothyroidism type: acquired Colon cancer screening Z12.11 Cervical cancer screening Z12.4 Assessment & Plan Assessment & Plan (1) Hypercholesterolemia: Code(s): E78.00 - Pure hypercholesterolemia, unspecified Category: Medical Plan: Avoid fried foods, chicken skin, eggs, butter margarine, pastries and meat. Be it pork or beef they have a lot of cholesterol February cholesterol is good LDL cholesterol of less than 130 and triglyceride of less than 150 (2) Hypothyroidism: Code(s): E03.9 - Hypothyroidism, unspecified Category: Medical Qualifiers: Hypothyroidism type: acquired Qualified Code(s): E03.9 - Hypothyroidism, unspecified Plan: Continue with thyroid medication last blood work was in April (3) Colon cancer screening: Code(s): Z12.11 - Encounter for screening for malignant neoplasm of colon Category: Medical Plan: Discussed about colon cancer screening (4) Cervical cancer screening: Code(s): Z12.4 - Encounter for screening for malignant neoplasm of cervix Category: Medical Plan History of Present Illness The patient is a 69-year-old female presenting for a follow-up visit. The patient has a history of hypothyroidism, managed with levothyroxine 112 mcg daily, with normal thyroid function tests in April. She also has hypercholesterolemia, with satisfactory cholesterol levels, including an LDL cholesterol of less than 130 mg/dL and triglycerides less than 150 mg/dL, managed through lifestyle modifications. The patient has osteopenia, confirmed by a bone density test in February 2024, and is advised to maintain adequate calcium and vitamin D intake. A right renal calculus was noted previously, but it has not been symptomatic recently. The patient was found to have anemia with a hemoglobin level of 11.3 g/dL and hematocrit of 34.2% in April, currently managed with iron supplements without side effects. Recently, the patient experienced a tick bite, which has healed without complications, and a Lyme disease test has been ordered as a precaution. Health Maintenance - Colon cancer screening discussed - Mammogram follow-up scheduled - Lyme disease screening ordered - Discussion on shingles vaccination - Flu vaccination timing discussed Social History - Exercise: Patient engages in daily exercise and gardening activities - Nutrition: Consumes at least three glasses of water daily, with efforts to increase intake Review of Systems - General: Denies fever, nausea, or vomiting - Cardiovascular: Denies chest pain - Respiratory: Denies cough or sore throat - Gastrointestinal: Reports diarrhea, now resolved; denies blood in stools - Genitourinary: Denies nocturia since taking potassium - Musculoskeletal: Reports leg cramps, managed with potassium and magnesium Physical Exam - Skin: Examination of tick bite area, noted as healed with no redness Results - Labs: Hemoglobin 11.3 g/dL, Hematocrit 34.2% (April) - Labs: LDL cholesterol <130 mg/dL, Triglycerides <150 mg/dL (April) - Labs: Normal thyroid function tests (April) Plan Patient was informed and verbally consented to the use of an ambient scribe for clinic note documentation during this visit. 1. Hypothyroidism The patient will continue with levothyroxine 112 mcg daily, as thyroid function tests in April were normal, indicating stable management. 2. Hypercholesterolemia The patient is advised to continue lifestyle modifications and regular monitoring, as cholesterol levels were satisfactory in April. 3. Osteopenia The patient is advised to maintain adequate calcium and vitamin D intake to manage osteopenia, confirmed by a bone density test in February 2024. 4. Right Renal Calculus The patient will continue monitoring for symptoms, as the right renal calculus has not been causing recent issues. 5. Anemia The patient will continue taking iron supplements, as anemia was noted in April with a hemoglobin level of 11.3 g/dL and hematocrit of 34.2%. 6. Tick Bite A Lyme disease test has been ordered as a precautionary measure following a tick bite experienced a month ago. Discussion Notes During the visit, we discussed the management of hypothyroidism with continued levothyroxine therapy, and the importance of lifestyle modifications for hypercholesterolemia. We also reviewed the need for calcium and vitamin D intake for osteopenia and the monitoring of the right renal calculus. A Lyme disease test was ordered following a recent tick bite, and we discussed the importance of regular screenings, including mammograms and colon cancer screening. Patient Instructions - Continue taking levothyroxine as prescribed. - Maintain lifestyle modifications for cholesterol management. - Ensure adequate intake of calcium and vitamin D. - Monitor for any symptoms related to the renal calculus. - Follow up with the Lyme disease test as ordered. - Schedule and attend regular screenings, including mammograms and colon cancer screening. Orders: Orders Comprehensive Met. Panel Today E03.9 - Hypothyroidism, unspecified Thyroid Stimulating Hormone Today E03.9 - Hypothyroidism, unspecified Vitamin B12 and Folate Today E03.9 - Hypothyroidism, unspecified Vitamin D 25-OH Total Today E03.9 - Hypothyroidism, unspecified Complete Blood Count Auto Diff Today E03.9 - Hypothyroidism, unspecified Free T4 (Free Thyroxine) Today E03.9 - Hypothyroidism, unspecified Lipid Panel Today E03.9 - Hypothyroidism, unspecified, E78.00 - Pure hypercholesterolemia, unspecified Lyme IgG/IgM w/reflex to WB Today E78.00 - Pure hypercholesterolemia, unspecified Referrals TESTER/LIFT TRUCKER Referral Z12.4 - Encounter for screening for malignant neoplasm of cervix Gastroenterology Referral Z12.11 - Encounter for screening for malignant neoplasm of colon
[2024-11-14 15:19] VITALS: BP 124/60; PULSE 69; TEMP 36.2; O2SAT 96; BMI 23.8
--- OUTSIDE RECORDS SUMMARY | 2024-11-14 16:05 | XMS_ITS | Clinical Summary ---
Author Organization [facility] Address [address] [facility] [address] [place], [place] [id number] Phone Care Team Providers Care Railroad Wheels And Axle Inspector Name Role Phone CaroleeAshley mcadams Marquita NEW CAR MAKE READY WORKER Primary Care Provider [phone] Medications meclizine (ANTIVERT) 25 mg tablet Take 1 tablet by mouth as needed. Active Medication-Free Text Vitamin B12 Active Medication-Free Text Vitamin D Active esomeprazole (NEXIUM) 20 MG capsule Take 1 capsule by mouth daily. Active levothyroxine (SYNTHROID, LEVOTHROID) 125 MCG tablet Take 1 tablet by mouth daily. Active citalopram (CELEXA) 10 MG tablet Take 1 tablet by mouth daily. Active Social History Tobacco Use Types Packs/Day Years Used Date Smoking Tobacco: Never Assessed Education Answer Date Recorded Are you interested in more education? Not on kit e 07/17/2022 Are you concerned about learning? Not on file 07/17/2022 No 07/17/2022 No 07/17/2022 Digital Access Answer Date Recorded No 08/17/2022 No 08/17/2022 Reliable internet access at home? Not on file 08/17/2022 Device with a working camera? Not on file Sex and Gender Information Value Date Recorded Sex Assigned at Not on file Legal Sex Male 10:35 PM EDT Gender Identity Not on file Sexual Orientation Not on file Last Filed Vital Signs Vital Sign Reading Time Taken Comments Blood Pressure 124/78 10/30/2015 8:40 AM EDT Pulse 67 10/30/2015 8:40 AM EDT Temperature - - Respiratory Rate - - Oxygen Saturation - - Inhaled Oxygen Concentration - - Weight 72.8 kg (160 lb 8 oz) 10/30/2015 8:40 AM EDT Height 157.5 cm (5' 2 ) 10/30/2015 8:40 AM EDT Body Mass Index 29.36 10/30/2015 8:40 AM EDT Plan of Treatment Not on file Medical Devices Not on file Insurance MEDICARE PART A & B MEDICARE PART A & B MEDICARE PART A & B MEDICARE PART A & B MEDICARE PART A & B MEDICARE PART A & B MEDICARE PART A & B MEDICARE PART A & B MEDICARE PART A & B Care Teams Railroad Wheels And Axle Inspector Relationship Specialty Start Date End Date Ashley Banerjee NP PCP - General 03/25/17 Additional Source Comments The information contained in this document represents components of the legal health record. It is not the complete legal health record.[facility]
--- OUTSIDE RECORDS SUMMARY | 2024-11-14 16:05 | XMS_ITS | Encounter Summary ---
Author Organization [facility] Address [address] [place] [phone] Phone Care Team Providers Care Masonry Contractor Administrator Name Role Phone Ashley Banerjee NP Primary Care Provider [phone] Encounter Details Date Type Department Care Team (Latest Contact Info) Description 05/05/2021 Transcribe Orders Virtual Department [address] [place] [address] Ashley Banerjee NP [address] [place] [address] Encounter for screening mammogram for malignant neoplasm of breast (Primary Dx) Social History Tobacco Use Types Packs/Day Years Used Date Smoking Tobacco: Never Assessed Sex and Gender Information Value Date Recorded Sex Assigned at Not on file Legal Sex Male 10:35 PM EDT Gender Identity Not on file Sexual Orientation Not on file documented as of this encounter Plan of Treatment Not on file documented as of this encounter Visit Diagnoses Diagnosis Encounter for screening mammogram for malignant neoplasm of breast- Primary documented in this encounter Care Teams Masonry Contractor Administrator Relationship Specialty Start Date End Date Ashley Banerjee NP PCP - General 03/25/17 documented as of this encounter Additional Source Comments The information contained in this document represents components of the legal health record. It is not the complete legal health record.[facility]
--- OUTSIDE RECORDS SUMMARY | 2024-11-14 16:05 | XMS_ITS | Clinical Summary ---
Author Organization [facility] Address [address] [place] [address] Phone [email or web address] Care Team Providers Care Rn Document Improvement Name Role Phone Unavailable Primary Care Provider [...] on file Legal Sex Female 8:57 AM PROPERTY AND CASUALTY INSURANCE AGENT Gender Identity Not on file Sexual Orientation Not on file Last Filed Vital Signs Vital Sign Reading Time Taken Comments Blood Pressure 118/78 06/30/2017 9:22 AM EDT Pulse 65 06/30/2017 9:22 AM EDT Temperature 36.5 C (97.7 F) 06/30/2017 9:22 AM EDT Respiratory Rate 16 06/30/2017 9:22 AM EDT Oxygen Saturation 98% 06/30/2017 9:22 AM EDT Inhaled Oxygen Concentration - - Weight 69.1 kg (152 lb 6.4 oz) 11/16/2017 8:34 A M EDT Height 157.5 cm (5' 2 ) 11/16/2017 11:40 AM EDT Body Mass Index 27.87 11/16/2017 8:34 AM EDT Plan of Treatment Health Maintenance Due Date Last Done Comments CT Colonography 1956 Colonoscopy 1956 Colorectal Cancer Screening Combo 1956 DNA Cologuard 1956 Dental Cleaning/Exam 1956 FIT or FOBT Test 1956 Sigmoidoscopy 1956 Tetanus Diphtheria and Pertu ssis Immunization (1 - Tdap) 1975 Osteoporosis screening DEXA 2006 Pneumococcal: 65+ Years (1 o f 1 - PCV) 2006 03/30/2010 Zoster Immunization (1 of 2) 2006 Covid-19 Immunization (1 - 2023-25 season) 2023 Influenza Immunization (#1) 2024 Pneumococcal: Ped (0 to 5 Yr s) and At-Risk Member (6 to 64 Yrs) Discontinued 03/30/2010 HIB Immunization Aged Out No longer e [...] dessert treat. Continue to speak with EAP/BeWell instructional coach to manage life's stressors and to [...]
== END 2024-11-14 16:16 | disposition home or self-care (01) ==
LOC: HO.HMCH 15:10
PROVIDERS: PCP Internal Medicine; Visit Provider Internal Medicine
DX: E78.00 Pure hypercholesterolemia, unspecified (principal); E03.9 Hypothyroidism, unspecified; Z12.11 Encounter for screening for malignant neoplasm of colon; Z12.4 Encounter for screening for malignant neoplasm of cervix

== ENCOUNTER → 2024-11-14 15:09 | Outpatient (BNVA) | payer MEDICARE, SELFPAY | PROVIDERS: PCP Internal Medicine; Visit Provider Internal Medicine | DX: N20.0 Calculus of kidney (principal); E03.9 Hypothyroidism, unspecified; E78.00 Pure hypercholesterolemia, unspecified; M85.80 Other specified disorders of bone density and structure, unspecified site; D64.9 Anemia, unspecified | CPT/HCPCS: 99212 ==

== ENCOUNTER 2024-11-22 06:52 | Outpatient (REF) | payer MEDICARE, SELFPAY ==
--- OUTSIDE RECORDS SUMMARY | 2017-09-15 03:30 | XMS_ITS | Continuity of Care Document ---
Author Organization [facility] Address [address] [place] [address] Phone Care Team Providers Care Cogeneration Operator Name Role Phone Jay Finney MD Unavailable Unavailable Allergies, Adverse Reactions, Alerts Substance Reaction Status Criticality CEPHALEXIN MONOHYDRATE Nausea/Vomiting Active No Information PROMETHAZINE HCL Nausea/Vomiting Active No Infor mation Sulfa (Sulfonamide Antibiotics) Active No Information codeine Active No Information Medications Medication Instructions Dosage Effective Dates (start - stop) Status Comments citalopram 20 mg tablet take 1 tablet by oral route every day 20 MG - Active Vitamin B-12 1,000 mcg tablet take 1 tablet by oral route every day - Active meclizine 25 mg tablet TAKE 1 TABLET BY MOUTH EVERY DAY NEEDED - Active Benadryl 25 mg capsule take 2 capsule by oral route every 4 - 6 hours as needed 50 MG - Active Vitamin D3 1,000 unit capsule take 2 by Oral route once 2 - Active Synthroid 125 mcg tablet take 1 tablet by oral route every day 125 MCG - Active Procedures Procedure Date SPECT STUDY Tc99m sestamibi LEXISCAN CARDIOVASCULAR STRESS TEST OFFICE ECHO NEW PATIENT VISIT OFFICE VISIT-ESTABL OFFICE ECHO OFFICE VISIT-ESTABL OFFICE ECHO OFFICE/OUTPATIENT VISIT EST OFFICE ECHO OBSERVATION DISCHARGE HOSPITAL ECHO INTRACARDIAC ECG (ICE) PERCTNS TRNSCTH CLOSURE OFFICE/OUTPATIENT VISIT EST R&L HRT ART/VENTRICLE ANGIO DOPPLER COLOR FLOW ADD-ON HOSPITAL GABRIELE DOPPLER ECHO EXAM HEART OFFICE/OUTPATIENT VISIT NEW ELECTROCARDIOGRAM COMPLETE OFFICE ECHO Advance Directives Directive Yes / No Effective Date File Name No Information Encounters Encounter Description Practice Location Reason(s) For Visit Diagnoses Date Provider Providers Copied on Encounter [facility], [address] [place] [address], [id number], tel:[phone] C [facility] No Information 8 Reg Thompson. [address] [place] [address], [address], [id number], [place]. tel:[phone] Referring Provider: Jose Angel Gordon, [address] [place] [address] [place] [address], [address] . tel:[phone] [facility], [address] [place] [address], [id number], tel:[phone] [facility] Dyspnea, unspecifiedAt rial septal defect 8 Maldonado Walter. [address] [place] [address], [address], [id number], [place]. tel:[phone] Referring Provider: Jose Angel Gordon, [address] [place] [address] [address], [address] . tel:[phone] NEW PATIENT VISIT [facility], [address] [place] [address], [id number], [place] tel:[phone] [facility] ASD (chief complaint)Hyp ertension (chief complaint)diz ziness (chief complaint) Atrial septal defectEssenti al (primary) hypertensionB silverio mass index (BMI) 29.0-29.9, adultDizzines sDyspnea 8 Maldonado Walter. [address] [place] [address], [address], [place], [id number], [place]. tel:[phone] Referring Provider: Jose Angel Gordon, [address] [place] [address] [address], [place], [address] . tel:[phone] OFFICE VISIT-ESTABL [facility], [address] [place] [address], [id number], [place] tel:[phone] [facility] ASD (chief complaint)Hyp ertension (chief complaint) Ostium secundum type atrial septal defectHyperte nsion, BenignOverwei ght 5 Maldonado Walter. [address] [place] [address], [address], [place], [id number], [place]. tel:[phone] [facility], [address] [place] [address], [id number], [place] tel:[phone] [facility] Atrial Septal DefectHyperte nsion, Benign 5 Maldonado Walter. [address] [place] [address], [address], [place], [id number], [place]. tel:[phone] Referring Provider: Jose Angel Gordon, [address] [place] [address] [address] [facility], [place], [address] . tel:[phone] [facility], [address] [place] [address], [id number], [place] tel:[phone] [facility] No Information 4 Maldonado Walter. [address] [place] [address], [address], [id number], [place]. tel:[phone] OFFICE VISIT-ESTABL [facility], [address] [place] [address], [id number], [place] tel:[phone] [facility] Hypertension (chief complaint)ASD (chief complaint) Ostium secundum type atrial septal defectHyperte nsion, BenignObesity unspecified, BMI 30-39Overweig ht 4 Maldonado Walter. [address] [place] [address], [address], [place], [id number], [place]. tel:[phone] [facility], [address] [place] [address], [id number], [place] tel:[phone] C [facility] Atrial Septal DefectDizzine ss 4 Maldonado Walter. [address] [place] [address], [facility] [address], [id number], [place]. tel:[phone] Referring Provider: Jose Angel Gordon, [address] [place] [address] [address], [address] . tel:[phone] OFFICE/OUTPA TIENT VISIT EST [facility], [address] [place] [address], [id number], [place] tel:[phone] [facility] Ostium secundum type atrial septal defectHyperte nsion, BenignObesity unspecified, BMI 30-39 4 Maldonado Walter. [address] [place] [address], [address], [place], [id number], [place]. tel:[phone] [facility], [address] [place] [address], [id number], [place] tel:[phone] C [facility] No Information 4 Maldonado Walter. [address] [place] [address], [facility] [address], [place], [id number], [place]. tel:[phone] Referring Provider: Jose Angel Gordon, [address] [place] [address] [place] [address], [address] . tel:[phone] [facility], [address] [place] [address], [id number], [place] tel:[phone] No Location Atrial Septal Defect No Information OBSERVATION DISCHARGE [facility], [address] [place] [address], [id number], [place] tel:[phone] [facility] Ostium secundum type atrial septal defect 4 Maldonado Walter. [address] [place] [address], [address], [place], [id number], [place]. tel:[phone] Referring Provider: Alyssa Moyer, [address] [place] [address] [address], [place], [address] . tel:[phone] [facility], [address] [place] [address], [id number], [place] tel:[phone] [facility] No Information 4 Maldonado Walter. [address] [place] [address], [address], [id number], [place]. tel:[phone] Referring Provider: Jose Angel Gordon, [address] [place] [address] [address], [place], [address] . tel:[phone] [facility], [address] [place] [address], [id number], [place] tel:[phone] [facility] Ostium secundum type atrial septal defect 4 Maldonado Walter. [address] [place] [address], [address], [id number], [place]. tel:[phone] Referring Provider: Jose Angel Gordon, [address] [place] [address] [address], [address] . tel:[phone] OFFICE/OUTPA TIENT VISIT EST [facility], [address] [place] [address], [id number], [place] tel:[phone] [facility] Ostium secundum type atrial septal defect 3 Maral Shah. [address] [place] [address], [address], [id number], [place]. tel:[phone] Referring Provider: Alyssa Moyer, [address] [place] [address] [address], [address] . tel:[phone] [facility], [address] [place] [address], [id number], [place] tel:[phone] [facility] Ostium secundum type atrial septal defect 3 Maldonado Walter. [address] [place] [address], [address], [place], [id number], [place]. tel:[phone] Referring Provider: Alyssa Moyer, [address] [place] [address] [address], [address] . tel:[phone] [facility], [address] [place] [address], [id number], [place] tel:[phone] [facility] Mitral valve disordersTric uspid valve disorders, specified as nonrheumaticO stium secundum type atrial septal defect 3 Maral Shah. [address] [place] [address], [address], [id number], [place]. tel:[phone] Referring Provider: Alyssa Moyer, [address] [place] [address] [address], [address] . tel:[phone] OFFICE/OUTPA TIENT VISIT NEW [facility], [address] [place] [address], [id number], [place] tel:[phone] [facility] Ostium secundum type atrial septal defectFatigue / Malaise 2-201 3 Maral Shah. [address] [place] [address], [address], [place], [id number], [place]. tel:[phone] Referring Provider: Alyssa Moyer, [address] [place] [address] [address], [address] . tel:[phone] [facility], [address] [place] [address], [id number], [place] tel:[phone] C [facility] Murmur 8-201 3 Maral Shah. [address] [place] [address], [address], [place], [id number], [place]. tel:[phone] Referring Provider: Jay Brasher, [address] [place] [address] [address], [place], [address]. tel:[phone] Family History Family Member Type Diagnosis Age At Onset Father Problem (finding) Prostate Cancer (Cause Of ) Mother Problem (finding) alzheimer's disease (Ca use Of ) Father Problem (finding) hypertension Father Problem (finding) High Blood Pressure Father Problem (finding) Sister Problem (finding) hypertension Sister Problem (finding) High Blood Pressure Mother Problem (finding) Payers Payer name Insurance type Covered republican ID Authoriza tion(s) BCBS PPO Other State [place] F[place] BL [id number] Social History Type Description Quantity Date Captured Comments Alcohol Use Details Unknown Caffeine Use Details Unknown Tobacco Use Status No Information Smoking Status No Information Sex Female Chief Complaint And Reason For Visit No Information Reason For Referral Reason For Referral No Information Plan Of Treatment Date Type Action Status Goal Dietary manageme nt education, guidance, and counseling completed Goal Dietary manageme nt education, guidance, and counseling completed Goal Dietary manageme nt education, guidance, and counseling completed Future Order: Lab Order CBC With Differential/Platelet ([id number]), Sent on: Sent Future Order: Lab Order Basic Me tabolic Panel (8) ([id number]), Sent on: Sent History Of Present Illness Encounter Date Complaint History Of Prese nt Illness Hypertension ASD dizziness ASD Hypertension ASD Hypertension Functional Status Date Functional Assessmen t No Information Instructions Date Instruction Additional Infor mation Dietary management e ducation, guidance, and counseling Related to Body mass index (BMI) 29.0-29.9, adult Dietary management e ducation, guidance, and counseling Related to Overweight Dietary management e ducation, guidance, and counseling Related to Overweight Assessments Type Assessment Date No Information Patient Care Teams Name Effective Dates (start - stop) Status Members No Information
--- OUTSIDE RECORDS SUMMARY | 2024-11-22 06:56 | XMS_ITS | Encounter Summary ---
Author Organization [facility] Address [address] [place] [address] Phone Care Team Providers Care Process Safety Engineering Technologist Name Role Phone Ashley Banerjee NP Primary Care Provider [phone] Encounter Details Date Type Department Care Team (Latest Contact Info) Description 05/05/2021 Transcribe Orders Virtual Department [address] [place] [address] Ashley Banerjee NP [address] [place] [address] Encounter for screening mammogram for malignant neoplasm [...] Primary documented in this encounter Care Teams Process Safety Engineering Technologist Relationship Specialty Start Date End Date Ashley Banerjee NP PCP - General 03/25/17 documented as of this encounter Additional Source Comments The information contained in this document represents components of the legal health record. It is not the complete legal health record.[facility]
--- OUTSIDE RECORDS SUMMARY | 2024-11-22 06:56 | XMS_ITS | Clinical Summary ---
Author Organization [facility] Address [address] [place] [address] Phone [email or web address] [email or web address] Care Team Providers Care Union Carpenter Name Role Phone Unavailable Primary Care Provider [...] on file Legal Sex Female 8:57 AM BRASS CHASER Gender Identity Not on file Sexual Orientation [...] treat. Continue to speak with EAP/BeWell assistant tennis coach to manage life's stressors and to [...]
--- OUTSIDE RECORDS SUMMARY | 2024-11-22 06:56 | XMS_ITS | Clinical Summary ---
Author Organization [facility] Address [address] [facility] [address] [place], [place] [id number] Phone Care Team Providers Care Nuclear Security Officer Name Role Phone CaroleeAshley mcadams Marquita BACK PAD INSPECTOR Primary Care Provider [phone] Medications meclizine (ANTIVERT) 25 mg tablet Take [...] MEDICARE PART A & B Care Teams Nuclear Security Officer Relationship Specialty Start Date End Date Ashley Banerjee NP PCP - General 03/25/17 Additional Source Comments The information contained in this document represents components of the legal health record. It is not the complete legal health record.[facility]
[2024-11-22 07:10] LABS: MANUAL DIFF FLAG NO
[2024-11-22 07:43] LABS: Hematocrit 33.0 % (37.0-47.0); Hemoglobin 11.1 g/dl (12.0-16.0); Imm Gran Abs Auto 0.01 X10*3/uL (0.00-0.03); Imm Gran Pct Auto 0.2 % (0.0-0.4); Lymphocytes Absolute Auto 2.0 X10*3/uL (1.2-4.9); Mean Corpuscular HGB Conc 33.6 g/dl (31.0-35.0); Mean Corpuscular Hemoglobin 31.0 pg (27.0-33.0); Mean Corpuscular Volume 92.2 fL (80.0-98.0); NRBC Abs Auto 0.000 X10*3/uL (0.0-0.012); NRBC Pct Auto 0.0 /100WBC (0.0-0.2); Platelet Count 171 X10*3/uL (160-400); Red Blood Count 3.58 X10*6/uL (4.20-5.50); White Blood Count 5.7 X10*3/uL (4.8-10.8)
[2024-11-22 08:23] LABS: Alanine Aminotransferase 40 U/L (0-31); Albumin Level 4.4 g/dL (3.5-5.0); Alkaline Phosphatase 54 U/L (39-117); Anion Gap 11 (12-20); Aspartate Amino Transferase 38 U/L (5-31); Blood Urea Nitrogen 20 mg/dL (9-16); Calcium 9.0 mg/dL (8.4-10.2); Carbon Dioxide 24 mmol/L (22-29); Chloride 110 mmol/L (96-108); Cholesterol 189 mg/dL (<200); Estimated Glomerular Filt Rate > 60; HDL Cholesterol 68 mg/dL (>40); Potassium 4.2 mmol/L (3.3-5.1); Sodium 141 mmol/L (135-145); Total Protein 6.9 g/dL (6.5-8.0); Triglycerides 26 mg/dL (<150)
[2024-11-22 08:45] LABS: Folate 8.5 ng/mL (> or = 4.0); Vitamin B12 622 pg/mL (200-900)
[2024-11-22 08:46] LABS: Free T4 (Free Thyroxine) 0.68 ng/dL (0.71-1.85); Thyroid Stimulating Hormone 51.34 uIU/mL (0.32-4.0)
[2024-11-23 12:03] LABS: Lyme Abs Screen <0.90 index
== END 2024-11-22 06:53 | disposition home or self-care (01) ==
LOC: HO.LAB 06:52
PROVIDERS: PCP Internal Medicine; Visit Provider Internal Medicine
DX: Z01.84 Encounter for antibody response examination (principal); E78.00 Pure hypercholesterolemia, unspecified; E03.9 Hypothyroidism, unspecified
CPT/HCPCS: 36415; 80053; 80061; 82306; 82607; 82746; 84439; 84443; 85025; 86617; 86618